=== PATIENT | female | born 1960 | race Caucasian/White ===

== ENCOUNTER 2016-07-30 07:08 | Day surgery (SDC) | payer MEDICARE, MEDICAID ==
[2015-08-25 11:04] VITALS: BMI 29.2
[2016-07-30 07:58] VITALS: O2SAT 100
--- NOTE | 2016-07-30 08:47 | CP.SDSHP ---
Same Day Surgery H & P - History Proposed Procedure: EGD Pre-Op Diagnosis: SEE NOTES - Previous Medical/Surgical History Cardiac: Hypertension Pulmonary: Asthma Endocrine/Metabolic: Diabetes, Other Misc: Other Pain: 4.Moderate Pain - Allergies Allergies: Allergies Penicillins Allergy (Intermediate, Verified 07/30/16 07:28) RASH - Physical Exam General Appearance: N Vital Signs: Vital Signs 07/30/16 07:39 Temperature 97.5 F L Pulse Rate 74 Respiratory 19 Rate Blood Pressure 110/62 O2 Sat by Pulse 100 Oximetry Mental Status: Alert & Oriented x3 Neuro: WNL Heart: Other Lungs: Other GI: Other - {Optional Preform as Required} Breast: WNL Abdomen: Other Rectal: Other Integument: WNL : WNL Ortho: Other ENT: WNL - Impression Pt. Evaluated Today:Candidate for Anesthesia & Procedure: Yes - Date & Time Time: 08:48 Short Stay Discharge - Short Stay Discharge Admitting Diagnosis/Reason for Visit: DYSPEPSIA Disposition: HOME/ ROUTINE
[2016-07-30] MEDS ORDERED: Midazolam 2 MG/2 ML VIAL ONE (08:48)
[2016-07-30] MEDS ORDERED: Propofol 10 mg/ml Inj (20 ML) ONE (08:48)
[2016-07-30] MEDS ORDERED: Belladonna-Phenobarbital PO STA (08:49)
[2016-07-30 09:35] VITALS: TEMP 97.7
[2016-07-30] MEDS ORDERED: Pantoprazole 40 mg EC Tab PO SCH (10:00)
[2016-07-30 10:48] VITALS: BP 131/60; PULSE 88; RESP 16
== END 2016-07-30 10:20 | disposition home or self-care (01) ==
LOC: C.ENDO 07:08
PROVIDERS: ATTEND Specialist
DX: K30 Functional dyspepsia (principal); K44.9 Diaphragmatic hernia without obstruction or gangrene; K29.70 Gastritis, unspecified, without bleeding
CPT/HCPCS: 43239; 82948; 88305; 88342; J2001; J2250; J2704; J2765

== ENCOUNTER 2017-05-20 08:10 | Day surgery (SDC) | payer MEDICARE, MEDICAID ==
[2017-05-20 08:43] VITALS: BMI 28.3
[2017-05-20 09:09] VITALS: O2SAT 100
[2017-05-20] MEDS ORDERED: Lidocaine Hydrochloride 10 ML INJ ONE (10:18)
[2017-05-20] MEDS ORDERED: Propofol 10 mg/ml Inj (20 ML) ONE (10:18)
--- NOTE | 2017-05-20 10:20 | CP.SDSHP ---
Same Day Surgery H & P - History Proposed Procedure: EGD Pre-Op Diagnosis: SEE NOTES - Previous Medical/Surgical History Cardiac: Hypertension Endocrine/Metabolic: Diabetes, Other Neuro: TIA/CVA, Backaches, Other Misc: Other Pain: 4.Moderate Pain - Allergies Allergies: Allergies Penicillins Allergy (Intermediate, Verified 05/20/17 08:42) RASH - Physical Exam General Appearance: N Vital Signs: Vital Signs 05/20/17 08:30 Temperature 97.5 F L Pulse Rate 71 Respiratory 19 Rate Blood Pressure 116/63 O2 Sat by Pulse 100 Oximetry Neuro: WNL Heart: Other Lungs: WNL GI: Other - {Optional Preform as Required} Breast: WNL Abdomen: Other Rectal: Other Integument: WNL : WNL Ortho: Other ENT: WNL - Impression Pt. Evaluated Today:Candidate for Anesthesia & Procedure: Yes - Date & Time Time: 10:20 Short Stay Discharge - Short Stay Discharge Admitting Diagnosis/Reason for Visit: DYSPEPSIA Disposition: HOME/ ROUTINE
[2017-05-20] MEDS ORDERED: Belladonna-Phenobarbital PO STA (10:22)
[2017-05-20] MEDS ORDERED: Lactated Ringer's 500 ML IV SCH (10:30)
[2017-05-20 10:48] VITALS: TEMP 99.5
[2017-05-20 11:59] VITALS: BP 143/73; PULSE 62; RESP 15
== END 2017-05-20 11:50 | disposition home or self-care (01) ==
LOC: C.ENDO 08:10
PROVIDERS: ATTEND Specialist
DX: K21.0 Gastro-esophageal reflux disease with esophagitis (principal); K44.9 Diaphragmatic hernia without obstruction or gangrene; Z79.84 Long term (current) use of oral hypoglycemic drugs; Z79.4 Long term (current) use of insulin; Z86.73 Personal history of transient ischemic attack (TIA), and cerebral infarction without residual deficits; E11.9 Type 2 diabetes mellitus without complications; E78.5 Hyperlipidemia, unspecified; I10 Essential (primary) hypertension; Z88.0 Allergy status to penicillin
CPT/HCPCS: 43239; 82948; 88305; 88342; J2704; J7120

== ENCOUNTER 2017-06-09 16:31 | Emergency (ER) | payer MEDICARE, MEDICAID ==
[2017-06-09 16:31] VITALS: BMI 28.3
[2017-06-09 19:33] LABS: SQUAMOUS EPITHIAL 1 /hpf (0-5)
[2017-06-09 19:36] LABS: URINE COLOR YELLOW (YELLOW)
[2017-06-09 19:37] LABS: URINE BILIRUBIN NEGATIVE (NEGATIVE); URINE BLOOD NEGATIVE (NEGATIVE); URINE CLARITY CLEAR (Clear); URINE GLUCOSE (UA) >1000 mg/dL (Normal); URINE LEUKOCYTE ESTERASE NEGATIVE Leu/uL (Negative); URINE PROTEIN NEGATIVE (NEGATIVE); URINE UROBILINOGEN 0.2 mg/dL (0.2-1.0)
[2017-06-09] MEDS ORDERED: Sodium Chloride 0.9% 1,000 ML IV ONE (19:46)
[2017-06-09 20:16] LABS: BASO % 0.5 % (0.0-2.0); EOS # 0.1 K/uL (0.0-0.7); EOS % 1.1 % (0.0-4.0); HEMOGLOBIN 13.8 g/dL (11.0-16.0); LYMPH # 3.3 K/uL (1.0-4.3); LYMPH % 54.9 % (20.0-40.0); MEAN CELL VOLUME 85.1 fL (81.0-99.0); MEAN CORPUSCULAR HEMOGLOBIN 28.3 pg (27.0-31.0); MEAN CORPUSCULAR HGB CONC 33.3 g/dL (33.0-37.0); MEAN PLATELET VOLUME 9.6 fL (7.2-11.7); MONO # 0.3 K/uL (0.0-0.8); MONO % 5.4 % (0.0-10.0); NEUT # 2.3 K/uL (1.8-7.0); NEUT % 38.1 % (50.0-75.0); NRBC % 0.1 % (0.0-2.0); RBC 4.87 Mil/uL (3.80-5.20); RED CELL DISTRIBUTION WIDTH 15.8 % (11.5-14.5)
[2017-06-09 20:28] LABS: ALB/GLOB RATIO 1.1 (1.0-2.1); ALBUMIN 4.8 g/dL (3.5-5.0); ALT/SGPT 19 U/L (9-52); AST/SGOT 29 U/L (14-36); BLOOD UREA NITROGEN 13 mg/dL (7-17); GFR AFRICAN-AMERICAN > 60; GFR NON-AFRICAN AMERICAN > 60; LIPASE 198 U/L (23-300)
[2017-06-09 21:00] VITALS: RESP 18
--- NOTE | 2017-06-09 23:11 | C.PDOC ---
Time Seen by Provider: 06/09/17 19:37 Chief Complaint (Nursing): Female Genitourinary History Per: Patient Onset/Duration Of Symptoms: Days (about 3 weeks), Waxing/Waning Current Symptoms Are (Timing): Still Present Severity: Moderate Location Of Pain/Discomfort: RUQ Radiation Of Pain To:: Back, Flank Quality Of Discomfort: "Pain" Associated Symptoms: Urinary Symptoms Alleviating Factors: None Additional History Per: Prior Records Past Medical History Reviewed: Historical Data, Nursing Documentation, Vital Signs Vital Signs: Last Vital Signs Temp 98.3 F 06/09/17 20:59 Pulse 68 06/09/17 20:59 Resp 18 06/09/17 20:59 BP 165/95 H 06/09/17 20:59 Pulse Ox 98 06/09/17 20:59 - Medical History PMH: Asthma, Diabetes, Deep Vein Thrombosis, Gastritis (EPIGASTRIC PAIN), Gastrointestinal Ulcer, HTN, Hypercholesterolemia, Osteoporosis Surgical History: Endoscopy, Other Surgeries: IVC filter - [facility] Procedures ENDOSC POLYPECTOMY OF LG INTEST (04/11/14) ESOPHAGOGASTRODUODENOSCOPY [EGD] W/CLOSED BIOPSY (11/08/14) Family History: States: Unknown Family Hx - Social History Hx Tobacco Use: No Hx Alcohol Use: No Hx Substance Use: No - Immunization History Hx Tetanus Toxoid Vaccination: No Hx Influenza Vaccination: No Hx Pneumococcal Vaccination: No Review Of Systems Except As Marked, All Systems Reviewed And Found Negative. Constitutional: Negative for: Fever Cardiovascular: Negative for: Chest Pain Respiratory: Negative for: Shortness of Breath Gastrointestinal: Positive for: Abdominal Pain. Negative for: Vomiting, Diarrhea Genitourinary: Positive for: Dysuria Musculoskeletal: Positive for: Back Pain. Negative for: Neck Pain Skin: Negative for: Rash Neurological: Negative for: Weakness, Numbness Physical Exam - Physical Exam Appears: Non-toxic, No Acute Distress Skin: Normal Color, Warm, Dry, No Rash Head: Atraumatic, Normacephalic Eye(s): bilateral: Normal Inspection, PERRL, EOMI Neck: Normal ROM, Supple Cardiovascular: Rhythm Regular Respiratory: Normal Breath Sounds, No Accessory Muscle Use Gastrointestinal/Abdominal: Soft, Tenderness (RUQ) Back: CVA Tenderness (mild right) Extremity: Normal ROM Neurological/Psych: Oriented x3, Normal Motor, Normal Sensation ED Course And Treatment - Laboratory Results Result Diagrams: 06/09/17 20:05 06/09/17 20:05 Lab Interpretation: No Acute Changes O2 Sat by Pulse Oximetry: 98 Pulse Ox Interpretation: Normal - CT Scan/US CT abd/pelv Other Rad Studies (CT/US): Read By Radiologist, Radiology Report Reviewed CT/US Interpretation: No acute findings. Progress - Interventions Interventions:: Observation - Medications Administered Intravenous: NSAID - Data Reviewed Data Reviewed: Lab, Diagnostic imaging, Old records - Patient Status Patient status: Mostly improved - Continuity of Care Discussed patient case with:: Patient, Family-HIPPA compliant, ED Nurse - Patient Plan Patient Plan: Discharge, F/U with PCP, Continue present meds Disposition Counseled Patient/Family Regarding: Studies Performed, Diagnosis, Need For Followup - Disposition Referrals: Melissa Ch MD [Staff Provider] - Keo Morris [Staff Provider] - Disposition: HOME/ ROUTINE Disposition Time: 23:11 Condition: STABLE Additional Instructions: Follow up with your doctor for further evaluation and treatment. Return to the ER if you develop fever, vomiting, worsening of symptoms or if you have any other concerns. Instructions: Flank Pain (DC) Forms: [employer] (Urdu) - Clinical Impression Clinical Impression: Right flank pain
[2017-06-09 23:15] VITALS: BP 129/79; PULSE 62; TEMP 97.3; O2SAT 99
--- NOTE | 2017-06-10 08:17 | CT ---
PROCEDURE: CT Abdomen and Pelvis without intravenous contrast HISTORY: Right flank pain COMPARISON: None. TECHNIQUE: Multiple contiguous axial images were performed through the abdomen and pelvis without the use of intravenous contrast. Subsequently, sagittal and coronal reformatted images were obtained. Radiation dose: Total exam DLP = 467 mGy-cm. This CT exam was performed using one or more of the following dose reduction techniques: Automated exposure control, adjustment of the mA and/or kV according to patient size, and/or use of iterative reconstruction technique. FINDINGS: LOWER THORAX: Dependent atelectasis at the lung bases. LIVER: Fatty infiltration of the liver. GALLBLADDER AND BILE DUCTS: Unremarkable. PANCREAS: Unremarkable. No gross lesion or ductal dilatation. SPLEEN: Unremarkable. ADRENALS: Unremarkable. No mass. KIDNEYS AND URETERS: Unremarkable. No hydronephrosis. No solid mass. VASCULATURE: Unremarkable. No aortic aneurysm. BOWEL: Partially distended stomach. Incompletely distended colon. APPENDIX: Unremarkable. Normal appendix. PERITONEUM: Unremarkable. No free fluid. No free air. LYMPH NODES: Unremarkable. No enlarged lymph nodes. BLADDER: Unremarkable. REPRODUCTIVE: Absent uterus. BONES: Degenerative changes in the osseous structures. Multilevel endplate sclerosis and/or mild loss of height. Correlation with MRI may be helpful if clinically indicated. OTHER FINDINGS: Small fat containing umbilical hernia. Small fat containing right inguinal hernia. IVC filter in place. Calcified phleboliths. IMPRESSION: Fatty infiltration of the liver. Additional findings as above. These findings were preliminarily reported at 9:30 p.m. on 06/09/[address] Karen Carmona from [employer].
== END 2017-06-09 23:15 | disposition home or self-care (01) ==
LOC: C.ER 16:31
DX: R10.11 Right upper quadrant pain (principal)
CPT/HCPCS: 74176; 80053; 81001; 83690; 85025; 87086; 96361; 96374; 99285; J1885; J7040

== ENCOUNTER 2017-07-24 14:39 | Inpatient (IN) | payer MEDICARE, MEDICAID ==
[2017-07-24 14:39] VITALS: BMI 28.3
[~2017-07-24 14:39] MED LIST: Gadodiamide 287 MG/ML VIAL (15ML) IV ONE
--- NOTE | 2017-07-24 15:30 | C.PDOC ---
History Of Present Illness 56 y/o female presents to ED with c/o worsening headache for 3 days worse today with associated facial numbness. Patient states headache is consistent with hemorrhagic stroke in 2016, taken Tylenol #3 and Fioricet, last dose was last night. No other complaints at this time. Time Seen by Provider: 07/24/17 15:22 Chief Complaint (Nursing): Headache History Per: Patient, Family History/Exam Limitations: no limitations Onset/Duration Of Symptoms: Days Current Symptoms Are (Timing): Still Present Quality: "Pain" Past Medical History Reviewed: Historical Data, Nursing Documentation, Vital Signs Vital Signs: Last Vital Signs Temp 97.3 F L 07/24/17 14:45 Pulse 67 07/24/17 16:15 Resp 16 07/24/17 16:15 BP 158/87 H 07/24/17 16:15 Pulse Ox 99 07/24/17 16:23 - Medical History PMH: Asthma, Diabetes, Deep Vein Thrombosis, Gastritis (EPIGASTRIC PAIN), Gastrointestinal Ulcer, HTN, Hypercholesterolemia, Osteoporosis Surgical History: Endoscopy, - [facility] Procedures ENDOSC POLYPECTOMY OF LG INTEST (04/11/14) ESOPHAGOGASTRODUODENOSCOPY [EGD] W/CLOSED BIOPSY (11/08/14) Family History: States: No Known Family Hx - Social History Hx Tobacco Use: No Hx Alcohol Use: No Hx Substance Use: No - Immunization History Hx Tetanus Toxoid Vaccination: No Hx Influenza Vaccination: No Hx Pneumococcal Vaccination: No Review Of Systems Constitutional: Negative for: Fever, Chills Cardiovascular: Negative for: Chest Pain Respiratory: Negative for: Shortness of Breath Gastrointestinal: Negative for: Nausea, Vomiting Skin: Negative for: Rash Neurological: Positive for: Headache. Negative for: Weakness, Numbness Physical Exam - Physical Exam Appears: Non-toxic, Other (In moderate distress) Skin: Warm, Dry, No Rash Head: Atraumatic, Normacephalic Eye(s): bilateral: Normal Inspection Oral Mucosa: Moist Neck: Normal ROM, Supple Cardiovascular: Rhythm Regular Respiratory: Normal Breath Sounds, No Rales, No Rhonchi, No Wheezing Gastrointestinal/Abdominal: Soft, No Tenderness, No Guarding, No Rebound Neurological/Psych: Oriented x3, Normal Speech, Normal Cognition, Normal Cranial Nerves, Normal Motor, Normal Sensation ED Course And Treatment - Laboratory Results Result Diagrams: 07/24/17 15:37 05/31/18 15:37 Lab Interpretation: Normal ECG: Interpreted By Me ECG Rhythm: Sinus Rhythm ECG Interpretation: Normal Rate From EC O2 Sat by Pulse Oximetry: 99 (RA) Pulse Ox Interpretation: Normal - Radiology CXR: Interpreted by Me CXR Interpretation: Yes: No Acute Disease Progress Note: 330pm: Code stroke called, morphine 4 mg IV. 1620: pain from 10 10 to 510, declines further pain meds Reevaluation Time: 16:19 Reassessment Condition: Improved - Physician Consult Information Outcome Of Conversation: 1615: d/w Dr Ch, PMD- ok to admit. NIHSS Stroke Scale - Date/Time Evaluation Performed Date Performed: 07/24/17 Time Performed: 15:30 When Was NIHSS Performed: Baseline - How Severe is the Stoke Level of Consciousness: 0=Alert LOC to Questions: 0=Both comments correct LOC to commands: 0=Obeys both correctly Best Gaze: 0=Normal Visual: 0=No visual loss Facial: 0=Normal Motor Arm - Left: 0=No drift Motor Arm - Right: 0=No drift Motor Leg - Left: 0=No drift Motor Leg - Right: 0=No drift Limb Ataxia: 0=Absent Sensory: 0=Normal Best Language: 0=No aphasia Dysarthia: 0=Normal articulation Extinction & Inattention (Neglect): 0=Normal, no object Score: 0 Severity Of Stroke: 0= No Stroke rTPA Inclusion/Exclusion - Refusal of Treatment Patient Refused Treatment: No - Inclusion Criteria for Altepase Patient is 18 years or Older: Yes The Clinical Diagnosis of Ischemic Stroke That is Causing a Potentially Disabling Neurological Deficit: No Time of Onset is Well Established to be Less Than 270 Minute Before Treatment Would Begin: No - Exclusion Criteria for Altepase Uncontrolled Hypertension at Time of Treatment (Systolic BP above 185 or Diastolic BP above 110 mmHg): No History of: Intracranial hemorrhage Known Bleeding Diathesis Including but Not Limited to: Platelets Below 100,000/ mm,PTT Above 40 sec After Heparin Use, Current Use of Oral Anitcoagulant With INR Greater Than 1.7 or PT Greater Than 15 secs: No Evidence of an Intracranial Hemorrhage: No Evidence of Major Acute Infarct With Signs Greater Than 1/3 MCA Territory: No Suspicion of Subarachnoid Hemorrhage on Pretreatment Evaluation Even if CT Head Negative For Hemorrhage: Yes - Warning to TPA With Conditions Following Conditions Weighed Against Anticipated Benefit: No Condition: Stroke Serevity Too Mild Medical Decision Making Medical Decision Making: acute on chronic headaches poor compliance with T3/Fioricet h/o SAH, but Code STroke w/u neg today, improved with mohphine IV ASA given Obs for neuro eval and MRI Disposition Doctor Will See Patient In The: Hospital Counseled Patient/Family Regarding: Studies Performed, Diagnosis - Disposition Disposition: HOSPITALIZED Disposition Time: 16:21 Condition: FAIR Forms: [employer] (Palauan) - Clinical Impression Clinical Impression: Headache - Scribe Statement The provider has reviewed the documentation as recorded by the Imeribjose Chan All medical record entries made by the Pancho were at my direction and personally dictated by me. I have reviewed the chart and agree that the record accurately reflects my personal performance of the history, physical exam, medical decision making, and the department course for this patient. I have also personally directed, reviewed, and agree with the discharge instructions and disposition.
[2017-07-24] MEDS ORDERED: Iodixanol 320 MG/ML 100 ML BOTTLE IV ONE (15:34)
[2017-07-24 15:42] LABS: BASO % 0.3 % (0.0-2.0); EOS # 0.1 K/uL (0.0-0.7); EOS % 1.1 % (0.0-4.0); HEMOGLOBIN 12.7 g/dL (11.0-16.0); LYMPH # 3.4 K/uL (1.0-4.3); LYMPH % 51.8 % (20.0-40.0); MEAN CELL VOLUME 85.7 fL (81.0-99.0); MEAN CORPUSCULAR HEMOGLOBIN 28.5 pg (27.0-31.0); MEAN CORPUSCULAR HGB CONC 33.3 g/dL (33.0-37.0); MEAN PLATELET VOLUME 9.6 fL (7.2-11.7); MONO # 0.5 K/uL (0.0-0.8); NEUT # 2.6 K/uL (1.8-7.0); NEUT % 39.8 % (50.0-75.0); RBC 4.46 Mil/uL (3.80-5.20); WHITE BLOOD COUNT 6.5 K/uL (4.8-10.8)
[2017-07-24 15:50] LABS: PROTHROMBIN TIME 11.4 SECONDS (9.7-12.2)
[2017-07-24 15:56] LABS: ALB/GLOB RATIO 1.3 (1.0-2.1); ALBUMIN 4.5 g/dL (3.5-5.0); ALT/SGPT 36 U/L (9-52); AST/SGOT 33 U/L (14-36); BLOOD UREA NITROGEN 11 mg/dL (7-17); GFR AFRICAN-AMERICAN > 60; GFR NON-AFRICAN AMERICAN > 60; HDL CHOLESTEROL 47 mg/dL (30-70)
--- NOTE | 2017-07-24 15:56 | CT ---
PROCEDURE: CT HEAD WITHOUT CONTRAST. HISTORY: Code Stroke COMPARISON: 07/13/2015. TECHNIQUE: Axial computed tomography images were obtained through the head/brain without intravenous contrast. Radiation dose: Total exam DLP = 803.91 mGy-cm. This CT exam was performed using one or more of the following dose reduction techniques: Automated exposure control, adjustment of the mA and/or kV according to patient size, and/or use of iterative reconstruction technique. FINDINGS: HEMORRHAGE: No intracranial hemorrhage. BRAIN: Morris-white matter differentiation is preserved. There is no mass, mass effect or abnormal extra-axial fluid collection. There is no territorial infarction. There is redemonstration of a small presumable calcified meningioma along the left posterior parietal convexity. VENTRICLES: The ventricles are normal in size, shape and configuration. CALVARIUM: The skull base and calvarium are normal. . PARANASAL SINUSES: Predominantly clear. MASTOID AIR CELLS: Predominantly clear. OTHER FINDINGS: None. IMPRESSION: No acute intracranial abnormality. If there is a persistent focal neurologic deficit and an ongoing clinical concern for acute infarction, an MRI of the brain without intravenous contrast would be a more sensitive modality for evaluation of hyperacute/acute ischemic infarction. Important findings were discussed with Dr. Kuldip Farrar on 07/24/2017 at 3:55 p.m.
[2017-07-24] MEDS ORDERED: Morphine 4 MG/ML VIAL ONE (15:59)
--- NOTE | 2017-07-24 16:06 | CT ---
PROCEDURE: CTA HEAD AND NECK WITH CONTRAST HISTORY: Headache, h/o SAH COMPARISON: None available. TECHNIQUE: Initial noncontrast head CT was performed. Subsequently, CT angiogram of the head and neck were performed after the intravenous administration of 80 mL of Omnipaque 350. Contiguous 1.5mm thick images were obtained in the axial plane of the neck. 2-D coronal and sagittal MPR images were obtained. Imaging postprocessing was performed with 3-D images also obtained. A delayed contrast head CT was also obtained. This CT exam was performed using one or more of the following dose reduction techniques: Automated exposure control, adjustment of the mA and/or kV according to patient size, and/or use of iterative reconstruction technique. Contrast dose: 100 mL Visipaque Radiation dose: Total exam DLP = 523.51 MGy-cm. FINDINGS: HEAD: Right: The intracranial internal carotid artery, and anterior and middle cerebral arteries are widely patent. Left: The intracranial internal carotid artery, and anterior and middle cerebral arteries are widely patent. Posterior circulation: The visualized intracranial vertebral arteries, basilar artery and posterior cerebral arteries are widely patent. There is no endoluminal filling defect to suggest thrombus. There is no intracranial saccular aneurysm. There is no abnormal enhancement on the postcontrast CT. NECK: There is a three vessel aortic arch. There is no stenosis at the origins of the great vessels at the level of the aortic arch. Right Carotid: On the right, the common carotid, internal carotid and external carotid arteries are widely patent. There is no hemodynamically significant stenosis in the internal carotid artery by NASCET criteria. Left Carotid: On the left, the common carotid, internal carotid and external carotid arteries are widely patent. There is no hemodynamically significant stenosis in the internal carotid artery by NASCET criteria. The vertebral arteries are widely patent. The vertebral arteries are codominant. The visualized soft tissues of the neck are normal. The visualized brain and cervical spine are within normal limits. The lung apices are clear. IMPRESSION: 1. No evidence of endoluminal thrombus, definite significant stenosis, occlusion or saccular aneurysm. 2. No hemodynamically significant stenosis in the internal carotid arteries.
[2017-07-24 16:07] LABS: LDL CHOLESTEROL 95 mg/dL (0-129)
--- NOTE | 2017-07-24 16:36 | RAD ---
HISTORY: Code Stroke COMPARISON: 07/16/2016. FINDINGS: LUNGS: The lungs are well inflated and clear. No pleural effusion or pneumothorax. PLEURA: No significant pleural effusion identified, no pneumothorax apparent. CARDIOVASCULAR: Normal. OSSEOUS STRUCTURES: No significant abnormalities. VISUALIZED UPPER ABDOMEN: Normal. OTHER FINDINGS: None. IMPRESSION: No active pulmonary disease.
[2017-07-24] MEDS ORDERED: Oxycodone/Acetaminophen 5/325 mg Tab PO STA (16:41)
[2017-07-24] MEDS ORDERED: Oxycodone/Acetaminophen 5/325 mg Tab ONE (16:51)
[2017-07-24] MEDS ORDERED: Fluticasone-Salmeterol 100-50mcg Diskus IH PRN (20:02)
[2017-07-24] MEDS ORDERED: Apap-Butalbital-Caffeine 325-50-40mg Tab PO PRN (21:05)
[2017-07-24] MEDS: (Novolog) Insulin Aspart, Recombinant 100 u/ml 10 ml vial SC SCH (21:17)
[2017-07-24] MEDS: (Lantus) Insulin Glargine, Recombinant SC SCH (21:18)
[2017-07-24] MEDS ORDERED: Acetaminophen-Codeine 300/30 mg Tab PO PRN (22:41)
[2017-07-25 07:40] LABS: HDL CHOLESTEROL 43 mg/dL (30-70)
[2017-07-25 07:55] LABS: LDL CHOLESTEROL 99 mg/dL (0-129)
[2017-07-25] MEDS ORDERED: Valproate 500 MG in Sodium Chloride 0.9% 100 ML IVPB ONE ×2 (08:06→17:12)
[2017-07-25] MEDS: (Novolog) Insulin Aspart, Recombinant 100 u/ml 10 ml vial SC SCH ×4 (08:15→21:49)
[2017-07-25] MEDS: Magnesium Sulfate 1 gm in D5W 1 GM/100 ML BAG IVPB SCH ×2 (08:23→08:55)
[2017-07-25] MEDS ORDERED: INSULIN ASPART 15 UNIT SQ SCH (09:00)
[2017-07-25] MEDS: (Lantus) Insulin Glargine, Recombinant SC SCH ×2 (09:47→21:42)
[2017-07-25] MEDS: Pantoprazole 40 mg EC Tab PO SCH ×2 (09:59→19:48)
[2017-07-25] MEDS ORDERED: ACETAMINOPHEN PO SCH (10:00)
[2017-07-25] MEDS ORDERED: CODEINE PO SCH (10:00)
[2017-07-25] MEDS ORDERED: Apap-Butalbital-Caffeine 325-50-40mg Tab PO SCH (10:00)
--- NOTE | 2017-07-25 12:06 | MRI ---
PROCEDURE: MRI BRAIN WITH AND WITHOUT CONTRAST HISTORY: Headache COMPARISON: Close Comparison made with prior scan and CTA of the brain dated 07/24/2014. TECHNIQUE: Multiplanar, multisequence MR images of the brain were obtained with and without intravenous contrast enhancement. FINDINGS: HEMORRHAGE: No evidence of acute parenchymal, subarachnoid nor extra-axial hemorrhage. No hemosiderin deposition is identified on gradient echo weighted sequence. DWI: No evidence of an acute or early subacute infarction seen on diffusion imaging. BRAIN PARENCHYMA: No mass,mass effect or edema. No atrophy or chronic microvascular ischemic changes. ENHANCEMENT: Again noted is a small (approximately 9.1 x 4.6 mm) elliptical shaped extra-axial calcification in the left occipito parietal watershed zone which exhibits a peripheral rim of enhancement however the calcified central portion and base of this small meningioma does not enhance. . There is localized minor on mass effect with slight compression of the subjacent cortex. No other enhancing extra-axial masses or collections. Incidental small venous angioma right frontal region best seen on axial series 11 image number 10. No other areas of abnormal dural or meningeal enhancement. VENTRICLES: No obstructive hydrocephalus. CRANIUM: No other dural based calcifications calvarial abnormalities are identified. Suspected old healed fracture deformity left zygomatic arch is less well seen on this study as compared to prior CT scan and CTA of the brain. ORBITS: Orbits and contents unremarkable. PARANASAL SINUSES/MASTOIDS: Frontal sinuses remain slightly underpneumatized/ hypoplastic however the remaining visualized paranasal air complexes are well-developed. Minor old mucosal thickening seen within the ethmoid air complex. VASCULAR SYSTEM: Visualized major vascular flow voids at skull base patent. OTHER FINDINGS: None . IMPRESSION: Small of partially calcified meningioma left occipito parietal watershed zone as described. Incidental small venous angioma right frontal region best seen on axial series 11 image number 10 No evidence of acute intracranial hemorrhage or infarct.
[2017-07-25 13:01] LABS: FOLATE > 20.0 ng/mL
[2017-07-25] MEDS: Oxycodone/Acetaminophen 5/325 mg Tab PO PRN (14:20)
[2017-07-25] MEDS ORDERED: Dexamethasone 4 mg/1 ml IV STA (17:12)
[2017-07-25] MEDS ORDERED: Magnesium Sulfate 1 gm in D5W 1 GM/100 ML BAG IVPB ONE (17:14)
--- NOTE | 2017-07-25 17:17 | CP.PCM.CON ---
History of Present Illness - History of Present Illness History of Present Illness: Mrs. Ling is a 57-year-old woman with a past medical history of subarachnoid hemorrhage in 2016, chronic headaches for which she uses Fioricet, who states that for the last 3 days her headaches have been significantly worse and associated with right facial and eye pain that is sharp and burning in nature. She presented to the ED, because she was concerned that this was another SAH. CT scan of the head did not show any acute findings, CTA did show diffusely narrowed caliber vessels, but nothing acutely concerning, MRI of the brain did now show any concerning findings. When I saw the patient, she was still complaining of 8/10 headache, located mostly on the right side, clarice-orbital, facial and neck. Review of Systems - Review of Systems All systems: reviewed and no additional remarkable complaints except Past Patient History - Infectious Disease Hx of Infectious Diseases: None - Past Medical History & Family History Past Medical History?: Yes - Past Social History Smoking Status: Never Smoked - CARDIAC Hx Cardiac Disorders: Yes Hx Hypercholesterolemia: Yes Hx Hypertension: Yes - PULMONARY Hx Respiratory Disorders: Yes Hx Asthma: Yes - NEUROLOGICAL Hx Neurological Disorder: Yes (SEE COMMENT) HX Cerebrovascular Accident: Yes (subarachnoid june 2015) Other/Comment: CHRONIC HEADACHE POST CVA - HEENT Hx HEENT Problems: No Other/Comment: 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 - RENAL Hx Chronic Kidney Disease: No - ENDOCRINE/METABOLIC Hx Endocrine Disorders: Yes Hx Diabetes Mellitus Type 2: Yes - HEMATOLOGICAL/ONCOLOGICAL Hx Blood Disorders: No (SEE COMMENT) Hx Blood Transfusions: No Other/Comment: DVT 2016 - INTEGUMENTARY Hx Dermatological Problems: No - MUSCULOSKELETAL/RHEUMATOLOGICAL Hx Musculoskeletal Disorders: Yes Hx Falls: No Hx Osteoporosis: Yes - GASTROINTESTINAL Hx Gastrointestinal Disorders: Yes Hx Gastritis: Yes (EPIGASTRIC PAIN) - GENITOURINARY/GYNECOLOGICAL Hx Genitourinary Disorders: No Hx Urinary Tract Infection: No Other/Comment: HYSTERECTOMY FOR BLEEDING - PSYCHIATRIC Hx Psychophysiologic Disorder: No Hx Substance Use: No - SURGICAL HISTORY Hx Surgeries: Yes Hx Appendectomy: Yes Hx Section: Yes Hx Hysterectomy: Yes - ANESTHESIA Hx Anesthesia: Yes Hx Anesthesia Reactions: No Hx Malignant Hyperthermia: No Has any member of the family had a problem w/ anesthesia?: No Meds Allergies/Adverse Reactions: Allergies Allergy/AdvReac Type Severity Reaction Status Date / Time Penicillins Allergy Intermediate RASH Verified 07/24/17 14:44 - Medications Medications: Current Medications Aspirin (Aspirin Chewable) 81 mg PO DAILY [facility] Last Admin: 07/25/17 09:47 Dose: 81 mg Duloxetine HCl (Cymbalta) 30 mg PO [facility] Last Admin: 07/24/17 21:57 Dose: 30 mg Famotidine (Pepcid) 20 mg PO BID [facility] Last Admin: 07/25/17 09:47 Dose: 20 mg Home Med (Patient's Own Medication) 1 tab PO [facility] Hydrochlorothiazide (Microzide) 12.5 mg PO QOD6 [facility] Insulin Aspart (Novolog) 0 unit SC ACHS [facility] PRN Reason: Protocol Last Admin: 07/25/17 13:49 Dose: Not Given Insulin Glargine (Lantus) 30 unit SC Q12 [facility] Last Admin: 07/25/17 09:47 Dose: 30 unit Losartan Potassium (Cozaar) 50 mg PO DAILY [facility] Last Admin: 07/25/17 09:47 Dose: 50 mg Metformin HCl (Glucophage) 1,000 mg PO BID [facility] Last Admin: 07/25/17 09:47 Dose: 1,000 mg Metoclopramide HCl (Reglan) 10 mg PO BID PRN PRN Reason: Dyspepsia Ondansetron HCl (Zofran Tab) 8 mg PO Q8 PRN PRN Reason: Nausea/Vomiting Oxycodone/Acetaminophen (Percocet 5/325 Mg Tab) 1 tab PO Q6 PRN PRN Reason: Pain, severe (8-10) Stop: 07/28/17 00:01 Last Admin: 07/25/17 14:20 Dose: 1 tab Pantoprazole Sodium (Protonix Ec Tab) 40 mg PO BID [facility] Last Admin: 07/25/17 09:59 Dose: Not Given Pregabalin (Lyrica) 100 mg PO TID [facility] Last Admin: 07/25/17 14:22 Dose: 100 mg Rosuvastatin Calcium (Crestor) 10 mg PO [facility] Last Admin: 07/24/17 21:57 Dose: 10 mg Fluticasone/Salmeterol (Advair Diskus 100/50) 1 puff IH RQ12 PRN PRN Reason: Wheezing Sucralfate (Carafate Tab) 1 gm PO TID [facility] Last Admin: 07/25/17 14:22 Dose: 1 gm Physical Exam - Constitutional Appears: Well - Head Exam Head Exam: ATRAUMATIC, NORMAL INSPECTION, NORMOCEPHALIC - Neurological Exam Neurological exam: Alert, CN II-XII Intact, Normal Gait, Oriented x3, Reflexes Normal Results - Vital Signs Recent Vital Signs: Last Vital Signs Temp 98.1 F 07/25/17 15:00 Pulse 97 H 07/25/17 15:00 Resp 20 07/25/17 15:00 BP 112/71 07/25/17 15:00 Pulse Ox 100 07/25/17 15:00 - Labs Result Diagrams: 07/24/17 15:37 07/24/17 15:37 Labs: Laboratory Results - last 24 hr 07/24/17 07/25/17 07/25/17 21:01 06:38 07:13 ESR POC Glucose (mg/dL) 113 H 149 H C-Reactive Protein Triglycerides 160 H Cholesterol 163 LDL Cholesterol Direct 99 HDL Cholesterol 43 Vitamin B12 25-OH Vitamin D Total Folate TSH 3rd Generation 07/25/17 07/25/17 07/25/17 11:24 11:24 11:24 ESR 15 POC Glucose (mg/dL) C-Reactive Protein 10.60 H Triglycerides Cholesterol LDL Cholesterol Direct HDL Cholesterol Vitamin B12 628 25-OH Vitamin D Total 36.7 Folate > 20.0 TSH 3rd Generation 0.81 07/25/17 07/25/17 11:36 16:52 ESR POC Glucose (mg/dL) 200 H 307 H C-Reactive Protein Triglycerides Cholesterol LDL Cholesterol Direct HDL Cholesterol Vitamin B12 25-OH Vitamin D Total Folate TSH 3rd Generation Assessment & Plan (1) Headache Assessment and Plan: Likely migraine and has symptoms of trigeminal neuralgia as well. I will start her on depakote ER 500 mg daily, and will give first dose IV now. Will also dose decadron 10 mg IV now and magnesium sulfate 1 gram IV now. She should stop taking Fioricet due to medication overuse headache. Follow up with me in outpatient. Thank you. Status: Acute Priority: High
[2017-07-25] MEDS ORDERED: TIZANIDINE 4MG PO SCH (22:00)
--- NOTE | 2017-07-26 02:20 | CARD ---
APPROVED REPORT EKG Measurement Heart [id number] <Conclusion> Normal sinus rhythm Normal ECG
--- NOTE | 2017-07-26 06:11 | HP ---
CHIEF COMPLAINT: Severe headache. HISTORY OF PRESENT ILLNESS This is a 56-year-old [place] female with history of subarachnoid hemorrhage in 2016 and chronic headache for which she uses different pain medications. The patient presented to emergency room with symptoms of severe headache that has been continuous over the last 4 days prior to admission. The patient was given Fioricet by me as an outpatient, and the symptoms were not relieved. The patient's headache is associated with some nausea and vomiting. The patient denied to have any his symptoms suggestive of head trauma or seizure activity. Other review of system is negative. ALLERGIES: NO KNOWN ALLERGY MEDICATIONS PER MAR. PAST MEDICAL HISTORY: Type 2 diabetes mellitus, uncontrolled; diabetic neuropathy; status post subarachnoid hemorrhage; hypertension; vitamin D deficiency; osteoarthritis; degenerative spine disease with radiculopathy. SOCIAL HISTORY: No history of smoking, EtOH or substance abuse. FAMILY HISTORY: Noncontributory. PHYSICAL EXAMINATION: GENERAL: The patient is in bed, in mild distress due to the headache. VITAL SIGNS: Blood pressure is 112/71, temperature 98.1, respiratory rate 20 and pulse 97. HEENT: Pupils are equal and reactive to light. Normal-appearing mucosa of the conjunctivae, oropharynx and nasal membrane mucosa. NECK: Supple. No JVD. No carotid bruit. No lymph node. No thyromegaly. CHEST AND LUNGS: Bilateral symmetrical expansion. Good air exchange. No rales. No rhonchi. CARDIOVASCULAR SYSTEM: PMI not localized. S1, S2. No additional sounds. ABDOMEN: Normoactive bowel sounds. No tenderness. No organomegaly. No masses. EXTREMITIES: No cyanosis, no clubbing, no edema. ORTHOTIC AND PROSTHETIC TECHNICIAN: Alert, awake, oriented x2. No neurological deficit could be appreciated. IMAGING: CAT scan of the head is negative, and MRI findings were quite significant. IMPRESSION: 1. The patient is a 56-year-old with severe headache associated with neck pain and rule out cervical spine disease with radiculopathy. 2. Type 2 diabetes mellitus. 3. Hypertension. PLAN: We will do cervical spine MRI. Follow neurological recommendations. Continue current medications. Resume the patient's home medications. Accu-Cheks with insulin coverage. Melissa Ch MD [facility] # [id number]
[2017-07-26] MEDS: (Novolog) Insulin Aspart, Recombinant 100 u/ml 10 ml vial SC SCH ×4 (08:11→21:39)
[2017-07-26] MEDS: Divalproex 500 mg ER Tab PO SCH (09:26)
[2017-07-26] MEDS: Pantoprazole 40 mg EC Tab PO SCH ×2 (09:39→17:42)
[2017-07-26] MEDS: (Lantus) Insulin Glargine, Recombinant SC SCH ×2 (11:28→21:53)
--- NOTE | 2017-07-26 13:13 | MRI ---
MRI cervical spine History: Headache. Radiculopathy. Neck pain. Comparison: None available. Technique: Multi-echo multiplanar sequences were performed through the cervical spine without the use of intravenous contrast. Findings: Mild levoscoliotic curvature of the lower cervical spine. Multilevel disc desiccation. Signal abnormality within the spinal cord on the sagittal T2 and STIR sequences may represent prominent pulsation artifact. Additional etiologies not excluded. Prominent patient motion artifact. Mild anterior osteophytosis at the C4 through C7 levels. C2-3: No significant disc herniation, spinal canal stenosis, or neural foraminal narrowing. C3-4: Small broad-based posterior disc bulge contacting the anterior thecal sac. No significant spinal canal stenosis or neural foraminal narrowing. C4-5: Small broad-based posterior disc bulge contacting the anterior thecal sac. Mild spinal canal stenosis. Mild bilateral neural foraminal narrowing. C5-6: Moderate-sized broad-based posterior disc osteophyte complex contacting the anterior thecal sac and anterior spinal cord. Moderate spinal canal stenosis. Moderate bilateral neural foraminal narrowing. C6-7: Small broad-based posterior disc bulge contacting the anterior thecal sac. Mild spinal canal stenosis. Mild bilateral neural foraminal narrowing. Impression: Limited study secondary to prominent patient motion and pulsation artifact. Multilevel posterior disc bulges/posterior disc osteophyte complexes as described above. Additional findings as above.
[2017-07-26] MEDS: carBAMazepine Chew Tab 100 MG Chew Tab PO SCH ×2 (14:40→21:04)
--- NOTE | 2017-07-26 16:19 | CARD ---
APPROVED REPORT EXAM: Two-dimensional and M-mode echocardiogram with Doppler and color Doppler. Other Information Quality : GoodRhythm : INDICATION CVA/TIA 2D DIMENSIONS IVSd0.7 (0.7-1.1cm)LVDd4.7 (3.9-5.9cm) PWd0.6 (0.7-1.1cm)LVDs2.9 (2.5-4.0cm) FS (%) 38.0 %LVEF (%)68.1 (>50%) M-Mode DIMENSIONS Left Atrium (MM)3.39 (2.5-4.0cm)Aortic Root2.61 (2.2-3.7cm) Aortic Cusp Exc.1.93 (1.5-2.0cm) Mitral Valve MV E Sqmlfcay89.4cm/sMV A Vyucwofe94.4cm/sE/A ratio1.1 TDI E/Lateral E'0.0E/Medial E'0.0 Tricuspid Valve TR Peak Qbvafwif881kj/sTR Peak Gr.[id number] LEFT VENTRICLE The left ventricle is normal size. There is normal left ventricular wall thickness. The left ventricular function is normal. The left ventricular ejection fraction is within the normal range. There is normal LV segmental wall motion. The left ventricular diastolic function is normal. RIGHT VENTRICLE The right ventricle is normal size. ATRIA The left atrium size is normal. The right atrium size is normal. AORTIC VALVE The aortic valve is normal in structure. MITRAL VALVE The mitral valve is normal in structure. TRICUSPID VALVE The tricuspid valve is normal in structure. <Conclusion> Normal LV systolic function. Normal chamber size. No significant valvular abnormality seen.
[2017-07-26] MEDS: Oxycodone/Acetaminophen 5/325 mg Tab PO PRN (17:47)
[2017-07-26] MEDS: LINACLOTIDE 290 MCG PO SCH (18:00)
[2017-07-26] MEDS ORDERED: diaZEpam 10 mg/2 ml Inj IVP PRN (18:41)
[2017-07-26] MEDS: TIZANIDINE 4MG PO SCH (21:04)
--- NOTE | 2017-07-26 23:35 | PN ---
DATE: 07/26/2017 DAILY PROGRESS NOTE SUBJECTIVE: The patient is seen today, 07/26/2017. She is still complaining of headache, mostly on the right side of the head. The patient had an MRI of the head as well as MRI of the cervical spine that did not show significant abnormality. The patient was treated as migraine headaches/trigeminal neuralgia by Dr. Loaiza, and she has been given Tegretol as well as Depakote. The patient is complaining also of back pain radiated to the right lower extremity. OBJECTIVE: VITAL SIGNS: Blood pressure 134/80, temperature 98.1, respiratory rate 20 and pulse 68. HEENT: Pupils are equal and reactive to light. Normal-appearing mucosa of the conjunctivae, oropharynx and nasal membrane mucosa. NECK: Supple. No JVD. No carotid bruit. No lymph node. No thyromegaly. CHEST AND LUNGS: Bilateral symmetrical expansion. Good air exchange. No rales. No rhonchi. CARDIOVASCULAR SYSTEM: PMI not localized. S1, S2. No additional sounds. ABDOMEN: Normoactive bowel sounds. No tenderness. No organomegaly. No masses. EXTREMITIES: No cyanosis, no clubbing, no edema. FOLDING MACHINE TENDER: Alert, awake, oriented x3. No neurological deficit could be appreciated. ASSESSMENT: Severe intractable migraine headache, degenerative spine disease with radiculopathy, type 2 diabetes mellitus, diabetic neuropathy. PLAN: Continue current medication and follow neurology recommendations. We will give the patient also Valium p.r.n. for headache as well as for back pain with muscle spasm. Fall precautions. Melissa Ch MD
[2017-07-27] MEDS: (Novolog) Insulin Aspart, Recombinant 100 u/ml 10 ml vial SC SCH ×4 (08:30→21:50)
[2017-07-27] MEDS: LINACLOTIDE 290 MCG PO SCH ×2 (10:14→18:08)
[2017-07-27] MEDS: Pantoprazole 40 mg EC Tab PO SCH ×2 (10:14→18:09)
[2017-07-27] MEDS: Divalproex 500 mg ER Tab PO SCH (10:15)
[2017-07-27] MEDS: carBAMazepine Chew Tab 100 MG Chew Tab PO SCH ×2 (10:16→22:10)
[2017-07-27] MEDS: (Lantus) Insulin Glargine, Recombinant SC SCH ×2 (10:20→22:12)
[2017-07-27] MEDS: Oxycodone/Acetaminophen 5/325 mg Tab PO PRN (10:25)
[2017-07-27] MEDS: TIZANIDINE 4MG PO SCH (22:10)
--- NOTE | 2017-07-28 02:15 | PN ---
DATE: 07/27/2017 SUBJECTIVE: The patient is seen today, 07/27/2017. Headache is responding to treatment but the patient feels dizzy. OBJECTIVE: VITAL SIGNS: Blood pressure is 95/59, temperature 98, respiratory rate 20, and pulse 73. HEENT: Pupils equal and reactive to light. Normal-appearing mucosa of the conjunctivae, oropharynx, and nasal membrane mucosa. NECK: Supple. No JVD. No carotid bruits or lymph node. No thyromegaly. CHEST AND LUNGS: Bilateral symmetrical expansion. Good air exchange. No rales, no rhonchi. CARDIOVASCULAR SYSTEM: PMI not localized. S1, S2. No additional sounds. ABDOMEN: Normoactive bowel sounds. No tenderness. No organomegaly. No masses. EXTREMITIES: No cyanosis, no clubbing, no edema. GAS MANAGER: Alert, awake, and oriented x2. No neurological deficit could be appreciated. ASSESSMENT: 1. Severe intractable migraine headache. 2. Possible trigeminal neuralgia. 3. Degenerative spine disease with radiculopathy. 4. Type 2 diabetes mellitus. 5. Hypertension. PLAN: May continue current medications and follow neurology recommendations, physical therapy. Melissa Ch MD
--- NOTE | 2017-07-28 08:55 | CP.PCM.PN ---
Subjective - Date & Time of Evaluation Date of Evaluation: 07/28/17 Time of Evaluation: 08:48 - Subjective Subjective: Ms. Ling was seen and examined at the bedside. She is alert, complaining of dizziness but no blurred vision or diplopia. According to the daughter she had episode of nausea earlier but did not inform any staff. She is able to follow simple commands. Echocardiogram showed normal LV systolic function, normal heart chamber with no significant valvular abnormality. MRI of the brain showed small partially calcified meningioma in the left occipito parietal watershed with incidental small venous angioma in the right frontal region. there is no evidence of acute intracranial hemorrhage or infarct. There was no untoward events overnight. Objective - Vital Signs/Intake and Output Vital Signs (last 24 hours): Temp Pulse Resp BP Pulse Ox 98.0 F 68 20 125/80 98 07/28/17 07:35 07/28/17 07:35 07/28/17 07:35 07/28/17 07:35 07/28/17 07:35 Intake and Output: 07/28/17 07/28/17 06:59 18:59 Intake Total 800 Balance 800 - Medications Medications: Current Medications Aspirin (Aspirin Chewable) 81 mg PO DAILY [facility] Last Admin: 07/27/17 10:14 Dose: 81 mg Carbamazepine (Tegretol) 300 mg PO Q12 [facility] Last Admin: 07/27/17 22:10 Dose: 300 mg Diazepam (Valium) 5 mg IVP Q6H PRN PRN Reason: Pain, severe (8-10) Divalproex Sodium (Depakote Er) 500 mg PO DAILY [facility] Last Admin: 07/27/17 10:15 Dose: 500 mg Duloxetine HCl (Cymbalta) 30 mg PO HS [facility] Last Admin: 07/27/17 22:10 Dose: 30 mg Famotidine (Pepcid) 20 mg PO BID [facility] Last Admin: 07/27/17 18:08 Dose: 20 mg Home Med (Patient's Own Medication) 1 tab PO [facility] Last Admin: 07/27/17 22:10 Dose: 1 tab Home Med (Linaclotide [Linzess]) 290 mcg PO BID [facility] Last Admin: 07/27/17 18:08 Dose: 290 mcg Hydrochlorothiazide (Microzide) 12.5 mg PO QOD6 [facility] Last Admin: 07/26/17 17:41 Dose: Not Given Insulin Aspart (Novolog) 0 unit SC ACHS [facility] PRN Reason: Protocol Last Admin: 07/27/17 21:50 Dose: Not Given Insulin Glargine (Lantus) 30 unit SC Q12 [facility] Last Admin: 07/27/17 22:12 Dose: 30 unit Losartan Potassium (Cozaar) 50 mg PO DAILY [facility] Last Admin: 07/27/17 10:14 Dose: 50 mg Meclizine HCl (Antivert) 25 mg PO BID [facility] Metformin HCl (Glucophage) 1,000 mg PO BID [facility] Last Admin: 07/27/17 18:09 Dose: 1,000 mg Metoclopramide HCl (Reglan) 10 mg PO BID PRN PRN Reason: Dyspepsia Ondansetron HCl (Zofran Tab) 8 mg PO Q8 PRN PRN Reason: Nausea/Vomiting Last Admin: 07/27/17 19:36 Dose: 8 mg Pantoprazole Sodium (Protonix Ec Tab) 40 mg PO BID [facility] Last Admin: 07/27/17 18:09 Dose: 40 mg Rosuvastatin Calcium (Crestor) 10 mg PO HS [facility] Last Admin: 07/27/17 22:09 Dose: 10 mg Fluticasone/Salmeterol (Advair Diskus 100/50) 1 puff IH RQ12 PRN PRN Reason: Wheezing Sucralfate (Carafate Tab) 1 gm PO TID [facility] Last Admin: 07/27/17 18:08 Dose: 1 gm - Labs Labs: 07/24/17 15:37 07/24/17 15:37 PT 11.4 SECONDS (9.7-12.2) 07/24/17 15:37 INR 1.0 07/24/17 15:37 APTT 34 SECONDS (21-34) 07/24/17 15:37 - Constitutional Appears: No Acute Distress - Head Exam Head Exam: NORMAL INSPECTION - Neurological Exam Neurological Exam: Alert, Awake, Oriented x3 Neuro motor strength exam: Left Upper Extremity: 5, Right Upper Extremity: 4, Left Lower Extremity: 4, Right Lower Extremity: 4 Additional comments: alert, awake, follows commands, sensation is intact. Assessment and Plan (1) Headache Assessment & Plan: Case discussed with DR. Miller, continue all current medical regimen. Recommend to follow up withg Dr. Loaiza at [address] [place], [place] [address] [address] [facility] [address]. tel. [phone] Status: Acute (2) Dizziness Assessment & Plan: Case discussed with Dr. Miller, recommend antivert 25 mg PO BID, hydration. Status: Acute
[2017-07-28] MEDS: (Novolog) Insulin Aspart, Recombinant 100 u/ml 10 ml vial SC SCH ×4 (09:32→22:01)
[2017-07-28] MEDS ORDERED: Gadodiamide 287 MG/ML VIAL (15ML) IV ONE (10:42)
[2017-07-28] MEDS: Divalproex 500 mg ER Tab PO SCH (10:54)
[2017-07-28] MEDS: (Lantus) Insulin Glargine, Recombinant SC SCH ×2 (10:54→23:00)
[2017-07-28] MEDS: carBAMazepine Chew Tab 100 MG Chew Tab PO SCH ×2 (10:54→22:57)
[2017-07-28] MEDS: LINACLOTIDE 290 MCG PO SCH ×2 (10:55→22:59)
[2017-07-28] MEDS: Pantoprazole 40 mg EC Tab PO SCH ×2 (10:56→18:34)
[2017-07-28] MEDS: TIZANIDINE 4MG PO SCH (22:58)
--- NOTE | 2017-07-29 02:01 | PN ---
DATE: 07/28/2017 DAILY PROGRESS NOTE SUBJECTIVE: The patient is seen today, 07/28/2017. She was feeling nauseated and vomited x1, but the headache is less. OBJECTIVE: VITAL SIGNS: Blood pressure 130/70, temperature 98.2, respiratory rate 18 and pulse 82. HEENT: Pupils are equal and reactive to light. Normal-appearing mucosa of the conjunctivae, oropharynx and nasal membrane mucosa. NECK: Supple. No JVD. No carotid bruit. No lymph node. No thyromegaly. CHEST AND LUNGS: Bilateral symmetrical expansion. Good air exchange. No rales. No rhonchi. CARDIOVASCULAR SYSTEM: PMI not localized. S1, S2. No additional sounds. ABDOMEN: Normoactive bowel sounds. No tenderness. No organomegaly. No masses. EXTREMITIES: No cyanosis, no clubbing, no edema. RESIDENTIAL GAS HEAT TECHNICIAN: Alert, awake, oriented x3. No neurological deficit could be appreciated. ASSESSMENT: 1. Intractable severe migraine headache. 2. Type 2 diabetes mellitus. 3. Possible trigeminal neuralgia. PLAN: Follow neurology recommendations. We will give the patient Reglan as the patient was on Zofran and she still had one episode of vomiting. Melissa Ch MD
[2017-07-29 08:23] VITALS: RESP 18
[2017-07-29] MEDS: (Novolog) Insulin Aspart, Recombinant 100 u/ml 10 ml vial SC SCH (08:30)
[2017-07-29] MEDS: carBAMazepine Chew Tab 100 MG Chew Tab PO SCH (09:46)
[2017-07-29] MEDS: Pantoprazole 40 mg EC Tab PO SCH (09:47)
[2017-07-29] MEDS: Divalproex 500 mg ER Tab PO SCH (09:47)
[2017-07-29] MEDS: (Lantus) Insulin Glargine, Recombinant SC SCH (09:47)
[2017-07-29] MEDS: LINACLOTIDE 290 MCG PO SCH (09:49)
--- NOTE | 2017-07-29 11:09 | CP.PCM.PN ---
Subjective - Date & Time of Evaluation Date of Evaluation: 07/29/17 Time of Evaluation: 11:08 - Subjective Subjective: PT SEEN BY DR. GARCIA LAST NIGHT AND RX FOR D/C GIVEN TO PT'S DAUGHTER BY HIM. PER DR. GARCIA THIS MORNING OK TO D/C PT HOME; PT AND FAMILY ASKING FOR D/C TODAY. TO F/U WITH NEURO IN THE OFFICE WITHIN 1-2 WEEKS. TO F/U WITH DR. GARCIA IN 1 WEEK IN THE OFFICE. NO FURTHER ORDERS. -FOLLOW UP WITH DR. GARCIA IN THE OFFICE WITHIN 1 WEEK OF DISCHARGE---CALL THE OFFICE TOMORROW TO MAKE YOUR APPOINTMENT TIME. -FOLLOW UP WITH DR. VAZQUEZ (NEUROLOGIST) IN THE OFFICE WITHIN 1-2 WEEKS OF DISCHARGE---CALL THE OFFICE TOMORROW TO MAKE YOUR APPOINTMENT TIME. -CONTINUE HOME MEDICATIONS USUAL. -NEW PRESCRIPTIONS INCLUDE: 1) TYLENOL #3 (WITH CODEINE)---TAKE 1 TABLET BY MOUTH TWICE A DAY NEEDED FOR PAIN (TAKE DOSES AT LEAST 8 HOURS APART). 2) TEGRETOL 200 MG (1 TABLET) BY MOUTH TWICE A DAY (MORNING AND EVENING). 3) DEPAKOTE ER 500 MG (1 TABLET) BY MOUTH ONCE A DAY (MORNING). -FOR FURTHER QUESTIONS OR CONCERNS, CONTACT DR. GARCIA' OFFICE. Objective - Vital Signs/Intake and Output Vital Signs (last 24 hours): Temp Pulse Resp BP Pulse Ox 99.3 F 64 18 121/68 96 07/29/17 07:40 07/29/17 07:40 07/29/17 07:40 07/29/17 07:40 07/29/17 07:40 Intake and Output: 07/29/17 07/29/17 06:59 18:59 Intake Total 360 Balance 360 - Medications Medications: Current Medications Aspirin (Aspirin Chewable) 81 mg PO DAILY [facility] Last Admin: 07/29/17 09:47 Dose: 81 mg Carbamazepine (Tegretol) 300 mg PO Q12 [facility] Last Admin: 07/29/17 09:46 Dose: 300 mg Diazepam (Valium) 5 mg PO Q6H PRN PRN Reason: Pain, severe (8-10) Last Admin: 07/28/17 13:24 Dose: 5 mg Divalproex Sodium (Depakote Er) 500 mg PO DAILY [facility] Last Admin: 07/29/17 09:47 Dose: 500 mg Duloxetine HCl (Cymbalta) 30 mg PO [facility] Last Admin: 07/28/17 23:00 Dose: 30 mg Famotidine (Pepcid) 20 mg PO BID [facility] Last Admin: 07/29/17 09:47 Dose: 20 mg Home Med (Patient's Own Medication) 1 tab PO [facility] Last Admin: 07/28/17 22:58 Dose: 1 tab Home Med (Linaclotide [Linzess]) 290 mcg PO BID [facility] Last Admin: 07/29/17 09:49 Dose: 290 mcg Hydrochlorothiazide (Microzide) 12.5 mg PO QOD6 [facility] Last Admin: 07/28/17 18:35 Dose: 12.5 mg Insulin Aspart (Novolog) 0 unit SC ACHS [facility] PRN Reason: Protocol Last Admin: 07/29/17 08:30 Dose: 4 unit Insulin Glargine (Lantus) 30 unit SC Q12 [facility] Last Admin: 07/29/17 09:47 Dose: 30 unit Losartan Potassium (Cozaar) 50 mg PO DAILY [facility] Last Admin: 07/29/17 09:47 Dose: 50 mg Meclizine HCl (Antivert) 25 mg PO BID [facility] Last Admin: 07/29/17 09:47 Dose: 25 mg Metformin HCl (Glucophage) 1,000 mg PO BID [facility] Last Admin: 07/29/17 09:47 Dose: 1,000 mg Metoclopramide HCl (Reglan) 10 mg PO BID PRN PRN Reason: Dyspepsia Last Admin: 07/29/17 09:47 Dose: 10 mg Ondansetron HCl (Zofran Tab) 8 mg PO Q8 PRN PRN Reason: Nausea/Vomiting Last Admin: 07/28/17 13:24 Dose: 8 mg Pantoprazole Sodium (Protonix Ec Tab) 40 mg PO BID [facility] Last Admin: 07/29/17 09:47 Dose: 40 mg Rosuvastatin Calcium (Crestor) 10 mg PO [facility] Last Admin: 07/28/17 22:58 Dose: 10 mg Fluticasone/Salmeterol (Advair Diskus 100/50) 1 puff IH RQ12 PRN PRN Reason: Wheezing Sucralfate (Carafate Tab) 1 gm PO TID [facility] Last Admin: 07/29/17 09:47 Dose: 1 gm - Labs Labs: 07/24/17 15:37 07/24/17 15:37 PT 11.4 SECONDS (9.7-12.2) 07/24/17 15:37 INR 1.0 07/24/17 15:37 APTT 34 SECONDS (21-34) 07/24/17 15:37
[2017-07-29 14:20] VITALS: BP 128/74; PULSE 80; TEMP 98.2; O2SAT 98
--- NOTE | 2017-07-30 07:05 | DS ---
REASON FOR ADMISSION: This is a 57-year-old [place] female with history of multiple medical problems who was admitted for intractable migraine headache with right-sided facial pain. COURSE OF HOSPITALIZATION: The patient was admitted to medical floor, and she had a neurology consult done by Dr. Loaiza. The patient was started on both Depakote and Tegretol for treating possible trigeminal neuralgia. The patient's neurological symptoms gradually improved, and the patient was placed on antiemetics due to nausea and vomiting x1. The patient was discharged home on the current medications to follow up with Neurology, and the patient also was advised to follow with the neurosurgeon in [place] but was following her when she had subarachnoid hemorrhage. FINAL DIAGNOSES: 1. Intractable migraine headache. 2. Possible trigeminal neuralgia. 3. Type 2 diabetes mellitus. 4. Hypertension. 5. Diabetic neuropathy. [facility] MD Dima
== END 2017-07-29 12:27 | disposition home or self-care (01) | DRG 74 ==
LOC: C.ER 14:39 → C.9E 16:23 → EEVIPCON 16:23 → C.6T 17:34
PROVIDERS: ADMIT Internal Medicine; ATTEND Internal Medicine
DX: G50.0 Trigeminal neuralgia (principal); G43.919 Migraine, unspecified, intractable, without status migrainosus; D32.0 Benign neoplasm of cerebral meninges; E11.40 Type 2 diabetes mellitus with diabetic neuropathy, unspecified; Z79.4 Long term (current) use of insulin; E78.00 Pure hypercholesterolemia, unspecified; I10 Essential (primary) hypertension; J45.909 Unspecified asthma, uncomplicated; M81.0 Age-related osteoporosis without current pathological fracture; Z86.718 Personal history of other venous thrombosis and embolism; Z86.73 Personal history of transient ischemic attack (TIA), and cerebral infarction without residual deficits

== ENCOUNTER 2017-12-23 19:23 | Emergency (ER) | payer MEDICARE, MEDICAID ==
[2017-12-23 19:24] VITALS: BMI 28.3
[2017-12-23 19:31] VITALS: BP 138/84; PULSE 63; RESP 20; TEMP 97.6; O2SAT 99
--- NOTE | 2017-12-23 19:51 | C.PDOC ---
History Of Present Illness 57 year old female with a history of diabetes presents to the ED for evaluation of a right-sided rash to the torso for 3 days. Patient describes the rash as painful and burning. Pt notes she had pain for a week and then developed a rash 3 days ago. Notes she checked her sugar, 200 today. No known allergens including foods, medications , or detergents. Has not taken any medication for the symptoms. Denies fever, nausea, vomiting, discharge, chest pain, shortness of breath, difficulty breathing, difficulty swallowing, lip/tongues swelling, chest pain, and any other associated symptoms. Time Seen by Provider: 12/23/17 19:34 Chief Complaint (Nursing): Abnormal Skin Integrity History Per: Patient, Family (daughter) History/Exam Limitations: no limitations Onset/Duration Of Symptoms: Days Current Symptoms Are (Timing): Still Present Quality Of Symptoms: Painful Past Medical History Reviewed: Historical Data, Nursing Documentation, Vital Signs Vital Signs: Last Vital Signs Temp 97.6 F 12/23/17 19:26 Pulse 63 12/23/17 19:26 Resp 20 12/23/17 19:26 BP 138/84 12/23/17 19:26 Pulse Ox 99 12/23/17 19:26 - Medical History PMH: Asthma, Diabetes, Deep Vein Thrombosis, Gastritis (EPIGASTRIC PAIN), Gastrointestinal Ulcer, HTN, Hypercholesterolemia, Osteoporosis Denies: Anxiety, Depression, Chronic Kidney Disease Surgical History: Appendectomy, Endoscopy, - [facility] Procedures ENDOSC POLYPECTOMY OF LG INTEST (04/11/14) ESOPHAGOGASTRODUODENOSCOPY [EGD] W/CLOSED BIOPSY (11/08/14) Family History: States: Unknown Family Hx - Social History Hx Tobacco Use: No Hx Alcohol Use: No Hx Substance Use: No - Immunization History Hx Tetanus Toxoid Vaccination: No Hx Influenza Vaccination: No Hx Pneumococcal Vaccination: No Review Of Systems Constitutional: Negative for: Fever ENT: Negative for: Other (allergies to medications. difficulty swallowing.) Cardiovascular: Negative for: Chest Pain Respiratory: Negative for: Shortness of Breath, Other (difficulty breathing. ) Gastrointestinal: Negative for: Nausea, Vomiting Skin: Negative for: Other (discharge.) Physical Exam - Physical Exam Appears: Well, Non-toxic Skin: Warm, Dry, Other (right-sided torso: vesicular rash on an erythematous base following dermatome. ) Head: Atraumatic, Normacephalic Eye(s): bilateral: Normal Inspection, EOMI Ear(s): Bilateral: Normal Nose: Normal Oral Mucosa: Moist Throat: Normal, No Erythema Neck: Normal ROM, Supple Lymphatic: Normal Exam Chest: Symmetrical Cardiovascular: Rhythm Regular Respiratory: Normal Breath Sounds, No Rales, No Rhonchi, No Wheezing Gastrointestinal/Abdominal: Normal Exam, Soft, No Tenderness Extremity: Normal ROM Neurological/Psych: Oriented x3, Normal Speech ED Course And Treatment O2 Sat by Pulse Oximetry: 99 (RA) Pulse Ox Interpretation: Normal Progress Note: Discussed signs of concern and return precautions. Patient stable for discharge home. Prescribed Zovirax. Disposition - Disposition Disposition: HOME/ ROUTINE Disposition Time: 19:48 Condition: STABLE Additional Instructions: Follow up with your doctor in1 -2 days. Return to ER if symptoms persist or wor sen. Prescriptions: Acyclovir [Zovirax] 800 mg PO 5XD #50 tab Calamine/Pramoxine [Caladryl] 180 ml TP QID PRN #1 bottle PRN Reason: Itching / Pruritus Instructions: Shingles (DC) Forms: [employer] (Serbian) - Clinical Impression Clinical Impression: Herpes zoster - PA / LEAD GENERATION SPECIALIST / Resident Statement MD/DO has reviewed & agrees with the documentation as recorded. - Scribe Statement The provider has reviewed the documentation as recorded by the Scribe (Laura Sanchez) All medical record entries made by the Scribe were at my direction and personally dictated by me. I have reviewed the chart and agree that the record accurately reflects my personal performance of the history, physical exam, medical decision making, and the department course for this patient. I have also personally directed, reviewed, and agree with the discharge instructions and disposition.
== END 2017-12-23 20:06 | disposition home or self-care (01) ==
LOC: C.ER 19:23
DX: B02.9 Zoster without complications (principal); E11.9 Type 2 diabetes mellitus without complications; E78.00 Pure hypercholesterolemia, unspecified; I10 Essential (primary) hypertension; M81.0 Age-related osteoporosis without current pathological fracture

== ENCOUNTER 2018-03-19 11:11 | Inpatient (IN) | payer MEDICARE, MEDICAID ==
[2018-03-19 11:11] VITALS: BMI 28.3
[2018-03-19] MEDS ORDERED: Sodium Chloride 0.9% 1,000 ML IV ONE (12:05)
[2018-03-19] MEDS ORDERED: Sodium Chloride 0.9% 1,000 ML ONE (12:22)
--- NOTE | 2018-03-19 12:27 | C.PDOC ---
History Of Present Illness 57yo female, history of diabetes, hypertension, comes to ER reporting nausea, abdominal pain and intermittent episodes of vomiting x 4 days. She reports the pain is right sided and radiates to her back; patient also reports decreased PO food intake. She otherwise states she has normal bowel movements and denies any dysuria, hematuria, weakness or numbness of lower extremities. She otherwise offers no additional medical complaints. PMD: Calderon Morel Time Seen by Provider: 03/19/18 11:38 Chief Complaint (Nursing): Abdominal Pain History Per: Patient History/Exam Limitations: no limitations Onset/Duration Of Symptoms: Days Current Symptoms Are (Timing): Still Present Location Of Pain/Discomfort: RUQ, RLQ, Periumbilical Radiation Of Pain To:: Back Quality Of Discomfort: "Pain" Associated Symptoms: Nausea, Vomiting, Loss Of Appetite. denies: Diarrhea, Chest Pain, Constipation, Urinary Symptoms Past Medical History Reviewed: Historical Data, Nursing Documentation, Vital Signs Vital Signs: Last Vital Signs Temp 98.0 F 03/19/18 11:19 Pulse 72 03/19/18 11:19 Resp 17 03/19/18 11:19 BP 123/77 03/19/18 11:19 Pulse Ox 100 03/19/18 11:19 - Medical History PMH: Asthma, Diabetes, Deep Vein Thrombosis, Gastritis (EPIGASTRIC PAIN), Gastrointestinal Ulcer, HTN, Hypercholesterolemia, Osteoporosis Denies: Anxiety, Depression, Chronic Kidney Disease Surgical History: Appendectomy, Endoscopy, Other Surgeries: right oopherectomy, hysterectomy - [facility] Procedures ENDOSC POLYPECTOMY OF LG INTEST (04/11/14) ESOPHAGOGASTRODUODENOSCOPY [EGD] W/CLOSED BIOPSY (11/08/14) Family History: States: No Known Family Hx - Social History Hx Tobacco Use: No Hx Alcohol Use: No Hx Substance Use: No - Immunization History Hx Tetanus Toxoid Vaccination: No Hx Influenza Vaccination: No Hx Pneumococcal Vaccination: No Review Of Systems Except As Marked, All Systems Reviewed And Found Negative. Constitutional: Negative for: Fever, Chills Cardiovascular: Negative for: Chest Pain Respiratory: Negative for: Shortness of Breath Gastrointestinal: Positive for: Nausea, Vomiting, Abdominal Pain. Negative for: Diarrhea, Constipation Genitourinary: Negative for: Dysuria, Frequency, Hematuria Neurological: Negative for: Weakness, Numbness Physical Exam - Physical Exam Appears: Non-toxic, No Acute Distress Skin: Normal Color, Warm, Dry Head: Atraumatic, Normacephalic Eye(s): bilateral: Normal Inspection Neck: Normal ROM, Supple Chest: Symmetrical Cardiovascular: Rhythm Regular Respiratory: Normal Breath Sounds, No Wheezing Gastrointestinal/Abdominal: Soft, Tenderness (right upper and lower quadrant tenderness), No Guarding, No Rebound Back: Normal Inspection, No CVA Tenderness Extremity: Normal ROM, No Pedal Edema Neurological/Psych: Oriented x3 ED Course And Treatment - Laboratory Results Result Diagrams: 03/19/18 12:26 03/19/18 12:26 O2 Sat by Pulse Oximetry: 100 (RA) Pulse Ox Interpretation: Normal - CT Scan/US Abdominal US Other Rad Studies (CT/US): Radiology Report Reviewed CT/US Interpretation: Accession No. : [id number]. Patient Name / ID : ELIZABETH Hu / [id number]. Exam Date : 03/19/2018 13:18:00 ( Approved ). Study Comment : Sex / Age : F / 57Y. Creator : Dede Genao MD. Dictator : Dede Genao MD. Shove Up : [employer] [place] Attendant : Dede Genao MD. Approver2 : Report Date : 03/19/2018 14:33:17. My Comment : . Date of service: 03/19/2018. HISTORY: RUQ abd pain, vomiting. COMPARISON: CT abdomen and pelvis without contrast performed 06/09/17, abdominal ultrasound performed 07/16/16. TECHNIQUE: Sonographic evaluation of the right upper quadrant of the abdomen. FINDINGS: LIVER: Measures 22.5 cm in length. Echogenic liver may be seen in setting of hepatic parenchymal disease or fatty infiltration. No focal hepatic mass identified. The main portal vein appears patent with normal directional flow. No intrahepatic bile duct dilatation. GALLBLADDER: No gallstones. No gallbladder wall thickening or pericholecystic edema. Negative sonographic Lozoya's sign as assessed by the public health technician. COMMON BILE DUCT: Measures 6 mm. PANCREAS: Not well-visualized. RIGHT KIDNEY: Measures approximately 11.7 x 3.4 x 4.5 cm. No obstructing calculus or hydronephrosis identified. AORTA: Limited visualization appears grossly unremarkable. IVC: Limited visualization appears grossly unremarkable. OTHER FINDINGS: None . IMPRESSION: Hepatomegaly. Echogenic liver may be seen in setting of hepatic parenchymal disease or fatty infiltration. CT Abdomen/Pelvis Other Rad Studies (CT/US): Radiology Report Reviewed CT/US Interpretation: FINDINGS: LOWER THORAX: Unremarkable. LIVER: Moderate hepatic steatosis is again noted. GALLBLADDER AND BILE DUCTS: No evidence of acute cholecystitis or biliary ductal dilatation. PANCREAS: Unremarkable. No gross lesion or ductal dilatation. SPLEEN: Unremarkable. ADRENALS: Unremarkable. No mass. KIDNEYS AND URETERS: Unremarkable. No hydronephrosis. No solid mass. VASCULATURE: IVC filter is seen in place no aortic aneurysm. No aortic atherosclerotic calcification or mural plaque present. BOWEL: Unremarkable. No obstruction. No gross mural thickening. APPENDIX: Normal appendix. PERITONEUM: Unremarkable. No free fluid. No free air. LYMPH NODES: Unremarkable. No enlarged lymph nodes. BLADDER: Unremarkable. REPRODUCTIVE: The uterus and adnexa are not visualized. BONES: Again seen are multiple small sclerotic bony lesion in the lower thoracic and lumbar spine stable since the prior exams. No evidence of destructive bony lesion. OTHER FINDINGS: None. IMPRESSION: No evidence of appendicitis.. Hepatomegaly and moderate hepatic steatosis again noted. No evidence of cholecystitis pancreatitis or bowel obstruction. Medical Decision Making Medical Decision Making: Impression: 57yo female with right sided abdominal pain r/o cholecystitis, renal colic, pyelonephritis, colitis Plan: -- Labs -- CXR -- US Abdomen -- Urinalysis -- Pepcid 20mg PO -- Toradol 30mg IV -- Zofran 4mg IV -- IV Fluids Labs and imaging reviewed. Results discussed with patient and family. On re-exam, the patient reports she still has pain. 15:[address] Morris, who recommends admission under Dr. Morel. Case was discussed with dr. Morel who agrees to admit the patient. Disposition - Disposition Disposition: HOSPITALIZED Disposition Time: 14:00 Condition: STABLE - POA Present On Arrival: None - Clinical Impression Clinical Impression: Vomiting, Abdominal wall pain - PA / MEDICAL LAB DIRECTOR / Resident Statement MD/DO has reviewed & agrees with the documentation as recorded. - Scribe Statement The provider has reviewed the documentation as recorded by the Pancho Escobar Provider Attestation: All medical record entries made by the Pancho were at my direction and personally dictated by me. I have reviewed the chart and agree that the record accurately reflects my personal performance of the history, physical exam, medical decision making, and the department course for this patient. I have also personally directed, reviewed, and agree with the discharge instructions and disposition.
[2018-03-19 12:30] LABS: BASO % 0.4 % (0.0-2.0); EOS # 0.1 K/uL (0.0-0.7); HEMOGLOBIN 13.3 g/dL (11.0-16.0); LYMPH # 2.7 K/uL (1.0-4.3); LYMPH % 53.5 % (20.0-40.0); MEAN CORPUSCULAR HEMOGLOBIN 28.5 pg (27.0-31.0); MEAN CORPUSCULAR HGB CONC 32.4 g/dL (33.0-37.0); MEAN PLATELET VOLUME 9.9 fL (7.2-11.7); MONO # 0.3 K/uL (0.0-0.8); MONO % 5.7 % (0.0-10.0); NEUT # 1.9 K/uL (1.8-7.0); NEUT % 38.4 % (50.0-75.0); NRBC % 0.2 % (0.0-2.0); RBC 4.67 Mil/uL (3.80-5.20); RED CELL DISTRIBUTION WIDTH 14.5 % (11.5-14.5)
[2018-03-19 12:36] LABS: MEAN CELL VOLUME 87.8 fL (81.0-99.0)
[2018-03-19 12:37] LABS: SQUAMOUS EPITHIAL < 1 /hpf (0-5); URINE BILIRUBIN NEGATIVE (NEGATIVE); URINE BLOOD NEGATIVE (NEGATIVE); URINE CLARITY Clear (Clear); URINE COLOR Yellow (YELLOW); URINE GLUCOSE (UA) 3+ mg/dL (Normal); URINE LEUKOCYTE ESTERASE NEG Leu/uL (Negative); URINE PROTEIN NEGATIVE (NEGATIVE); URINE UROBILINOGEN NORMAL mg/dL (0.2-1.0)
[2018-03-19 12:52] LABS: ALB/GLOB RATIO 1.4 (1.0-2.1); ALBUMIN 4.9 g/dL (3.5-5.0); ALT/SGPT < 6 U/L (9-52); AST/SGOT 38 U/L (14-36); BLOOD UREA NITROGEN 13 mg/dL (7-17); CALCIUM 9.3 mg/dl (8.6-10.4); GFR NON-AFRICAN AMERICAN > 60; LIPASE 123 U/L (23-300)
--- NOTE | 2018-03-19 13:55 | RAD ---
Date of service: 03/19/2018 PROCEDURE: CHEST RADIOGRAPH, 1 VIEW HISTORY: Epigastric/abdominal pain. COMPARISON: 07/24/2017 FINDINGS: LUNGS: Clear. PLEURA: No pneumothorax or pleural fluid seen. CARDIOVASCULAR: No aortic atherosclerotic calcification present. No radiographic findings to suggest acute or significant cardiovascular disease. OSSEOUS STRUCTURES: No significant abnormalities. VISUALIZED UPPER ABDOMEN: Normal. OTHER FINDINGS: None. IMPRESSION: No active disease. No acute/significant interval changes.
--- NOTE | 2018-03-19 14:36 | US ---
Date of service: 03/19/2018 HISTORY: RUQ abd pain, vomiting COMPARISON: CT abdomen and pelvis without contrast performed 06/09/17, abdominal ultrasound performed 07/16/16 TECHNIQUE: Sonographic evaluation of the right upper quadrant of the abdomen. FINDINGS: LIVER: Measures 22.5 cm in length. Echogenic liver may be seen in setting of hepatic parenchymal disease or fatty infiltration. No focal hepatic mass identified. The main portal vein appears patent with normal directional flow. No intrahepatic bile duct dilatation. GALLBLADDER: No gallstones. No gallbladder wall thickening or pericholecystic edema. Negative sonographic Lozoya's sign as assessed by the wash worker. COMMON BILE DUCT: Measures 6 mm. PANCREAS: Not well-visualized. RIGHT KIDNEY: Measures approximately 11.7 x 3.4 x 4.5 cm. No obstructing calculus or hydronephrosis identified. AORTA: Limited visualization appears grossly unremarkable. IVC: Limited visualization appears grossly unremarkable. OTHER FINDINGS: None . IMPRESSION: Hepatomegaly. Echogenic liver may be seen in setting of hepatic parenchymal disease or fatty infiltration.
[2018-03-19] MEDS ORDERED: Morphine 4 MG/ML VIAL ONE (15:41)
[2018-03-19] MEDS ORDERED: Iohexol 300 100 ML IJ ONE (16:15)
--- NOTE | 2018-03-19 16:34 | CP.PCM.PN ---
Subjective - Date & Time of Evaluation Date of Evaluation: 03/19/18 Time of Evaluation: 16:00 - Subjective Subjective: PGY2 Progress Note for Dr. Bowen Patient is a 57 year old F with PMHx of subarachnoid hemorrhage (2015), asthma, DMII, HTN, HLD, migraines, fatty liver, urge incontinence, depression who presents today for 4 days of worsening abdominal pain with nausea and vomiting. Patient says the pain is sharp throughout the right side and radiates to the right flank. Patient says at it worst it is 10/10 pain, but after receiving pain medication it is 5/10. Patient also admits to nausea and about 1 episode of vomiting per day for the past 4 days. Patient says she vomited up food. Patient has little appetite, but has been eating some. Patient is tolerating liquids. Patient is having normal bowel movements and denies any blood in the stool. Patient says sometimes she gets some burning with urination, but denies hematuria. Patient also admits to chronic headaches which she currently admits to having. Patient denies chest pain or shortness of breath. All: penicillin- rash PMHx: subarachnoid hemorrhage (2016), asthma, DMII, HTN, HLD, migraines, fatty liver, urge incontinence, depression Psurg: c section x 2 (in ), hysterectomy (late ) Famhx: Father: of stomach cancer at age 74 Social: denies alcohol, drugs, tobacco Objective - Vital Signs/Intake and Output Vital Signs (last 24 hours): Temp Pulse Resp BP Pulse Ox 99.4 F 60 18 129/75 97 03/19/18 16:21 03/19/18 16:21 03/19/18 16:21 03/19/18 16:21 03/19/18 16:21 - Medications Medications: Current Medications Duloxetine HCl (Cymbalta) 30 mg PO QID [facility] Insulin Aspart (Novolog) 15 unit SC AC JE Insulin Glargine (Lantus) 40 unit SC DAILY JE Insulin Glargine (Lantus) 60 unit SC HS JE Insulin Human Regular (Novolin R) 0 unit SC ACHS JE; Protocol Ketorolac Tromethamine (Toradol) 30 mg IVP Q6H PRN PRN Reason: Pain, severe (8-10) Losartan Potassium (Cozaar) 50 mg PO DAILY JE Metformin HCl (Glucophage) 500 mg PO BID JE Metoclopramide HCl (Reglan) 5 mg PO BID JE Oxybutynin Chloride (Ditropan Tab) 5 mg PO HS JE Rosuvastatin Calcium (Crestor) 5 mg PO HS JE Sucralfate (Carafate Tab) 1 gm PO BID JE - Labs Labs: 03/19/18 12:26 03/19/18 12:26 - Constitutional Appears: Non-toxic, No Acute Distress - Head Exam Head Exam: ATRAUMATIC, NORMAL INSPECTION, NORMOCEPHALIC - Eye Exam Eye Exam: EOMI, Normal appearance - ENT Exam ENT Exam: Normal Oropharynx - Respiratory Exam Respiratory Exam: Clear to Ausculation Bilateral, NORMAL BREATHING PATTERN. absent: Wheezes - Cardiovascular Exam Cardiovascular Exam: REGULAR RHYTHM, RRR, +S1, +S2 - GI/Abdominal Exam GI & Abdominal Exam: Soft, Tenderness (generalized tenderness), Normal Bowel Sounds. absent: Distended, Firm, Guarding - Extremities Exam Extremities Exam: Full ROM, Normal Inspection. absent: Pedal Edema - Back Exam Back Exam: NORMAL INSPECTION. absent: CVA tenderness (L), CVA tenderness (R) - Neurological Exam Neurological Exam: Alert, Awake, Oriented x3 - Psychiatric Exam Psychiatric exam: Anxious, Normal Affect - Skin Skin Exam: Intact, Normal Color, Warm Assessment and Plan - Assessment and Plan (Free Text) Assessment: Abdominal Pain abd u/s: hepatomegaly, echogenic liver may be seen in setting of hepatic parenchymal disease or fatty infiltration f/u CT abd/ pelvis Dr. Morris consulted, help appreciated continue home medications: Sucralfate 1gm po BID, Reglan 5mg po BID, Bentyl 20mg po BID Linzess and Dexilant NF Toradol 30mg ivp q6h prn Protonix 40mg po daily low consistent, heart healthy, bland diet DMII continue home meds: Novolog 15 u sc ac, Lantus 40 u sc daily, Lantus 60 u SC HS Metformin 500mg po BID Lantus 30 u sc HS on 03/19/18 since patient eating less today ISS ACHS hypoglycemia protocol accuchecks ACHS adjust insulin based on po intake many home diabetic medications NF f/u HgA1C HTN Losartan 50mg po daily f/u TSH, free T4 HLD simvastatin NF Crestor 5mg po HS Fenofibrate 145 po HS f/u lipid panel Urge Incontinence continue home medication: Ditropan 5mg po HS Depression Cymbalta 30mg po QID Prophylaxis Protonix 40mg po daily SCDs Discussed with Dr. Bowen
[2018-03-19] MEDS ORDERED: Dextrose 50% SYRINGE Inj (50 ml) IV PRN (16:41)
[2018-03-19] MEDS ORDERED: Glucagon Recombinant 1 mg Inj IM PRN (16:41)
[2018-03-19] MEDS: (Novolin R) Insulin Human Regular 100 units/ml vial SC SCH ×2 (16:47→23:01)
[2018-03-19] MEDS: Pantoprazole 40 mg EC Tab PO SCH (16:48)
[2018-03-19] MEDS ORDERED: Pantoprazole 40 mg EC Tab PO ONE (16:52)
--- NOTE | 2018-03-19 17:20 | CT ---
Date of service: 03/19/2018 PROCEDURE: CT Abdomen and Pelvis with contrast HISTORY: RLQ abd pain, vomiting COMPARISON: Comparison is made to the previous study dated 06/09/2017 TECHNIQUE: Contrast dose: 100 mL of Omnipaque 300 intravenously Radiation dose: Total exam DLP = 636.33 mGy-cm. This CT exam was performed using one or more of the following dose reduction techniques: Automated exposure control, adjustment of the mA and/or kV according to patient size, and/or use of iterative reconstruction technique. FINDINGS: LOWER THORAX: Unremarkable. LIVER: Moderate hepatic steatosis is again noted. GALLBLADDER AND BILE DUCTS: No evidence of acute cholecystitis or biliary ductal dilatation. PANCREAS: Unremarkable. No gross lesion or ductal dilatation. SPLEEN: Unremarkable. ADRENALS: Unremarkable. No mass. KIDNEYS AND URETERS: Unremarkable. No hydronephrosis. No solid mass. VASCULATURE: IVC filter is seen in place no aortic aneurysm. No aortic atherosclerotic calcification or mural plaque present. BOWEL: Unremarkable. No obstruction. No gross mural thickening. APPENDIX: Normal appendix. PERITONEUM: Unremarkable. No free fluid. No free air. LYMPH NODES: Unremarkable. No enlarged lymph nodes. BLADDER: Unremarkable. REPRODUCTIVE: The uterus and adnexa are not visualized. BONES: Again seen are multiple small sclerotic bony lesion in the lower thoracic and lumbar spine stable since the prior exams. No evidence of destructive bony lesion. OTHER FINDINGS: None. IMPRESSION: No evidence of appendicitis.. Hepatomegaly and moderate hepatic steatosis again noted. No evidence of cholecystitis pancreatitis or bowel obstruction.
[2018-03-19] MEDS ORDERED: (Lantus) Insulin Glargine, Recombinant SC ONE (22:00)
[2018-03-20 06:58] LABS: BASO % 0.5 % (0.0-2.0); EOS # 0.1 K/uL (0.0-0.7); HEMOGLOBIN 12.2 g/dL (11.0-16.0); LYMPH % 62.2 % (20.0-40.0); MEAN CELL VOLUME 87.4 fL (81.0-99.0); MEAN CORPUSCULAR HEMOGLOBIN 28.6 pg (27.0-31.0); MEAN CORPUSCULAR HGB CONC 32.7 g/dL (33.0-37.0); MEAN PLATELET VOLUME 9.8 fL (7.2-11.7); MONO # 0.3 K/uL (0.0-0.8); NEUT # 1.4 K/uL (1.8-7.0); NEUT % 28.3 % (50.0-75.0); RBC 4.26 Mil/uL (3.80-5.20); RED CELL DISTRIBUTION WIDTH 14.3 % (11.5-14.5); WHITE BLOOD COUNT 4.8 K/uL (4.8-10.8)
[2018-03-20 07:00] LABS: ALB/GLOB RATIO 1.6 (1.0-2.1); ALBUMIN 4.1 g/dL (3.5-5.0); ALT/SGPT 16 U/L (9-52); AST/SGOT 18 U/L (14-36); BLOOD UREA NITROGEN 14 mg/dL (7-17); CALCIUM 8.8 mg/dl (8.6-10.4); GFR NON-AFRICAN AMERICAN > 60
[2018-03-20] MEDS: (Novolin R) Insulin Human Regular 100 units/ml vial SC SCH ×4 (07:20→22:12)
[2018-03-20] MEDS: Pantoprazole 40 mg EC Tab PO SCH (09:04)
[2018-03-20] MEDS: (Novolog) Insulin Aspart, Recombinant 100 u/ml 10 ml vial SC SCH ×3 (09:07→17:10)
[2018-03-20] MEDS ORDERED: (Lantus) Insulin Glargine, Recombinant SC SCH ×2 (10:00→22:00)
--- NOTE | 2018-03-20 10:21 | CP.PCM.PN ---
Subjective - Date & Time of Evaluation Date of Evaluation: 03/20/18 Time of Evaluation: 10:21 - Subjective Subjective: PGY2 Medicine Note for Dr. Morel Patient seen and examined this morning at bedside. Patient is still complaining of abdominal pain, most severe in the right upper quadrant. She is having difficulty eating because she has no appetite. Patient's daughter is at bedside. She denies fevers, chills, nausea, vomiting, diarrhea or constipation. Objective - Vital Signs/Intake and Output Vital Signs (last 24 hours): Temp Pulse Resp BP Pulse Ox 97.5 F L 53 L 20 143/70 96 03/20/18 07:37 03/20/18 07:37 03/20/18 07:37 03/20/18 07:37 03/20/18 07:37 - Medications Medications: Current Medications Dextrose (Dextrose 50% Inj) 0 ml IV STAT PRN; Protocol PRN Reason: Hypoglycemia Protocol Dextrose (Glutose 15) 0 gm PO ONCE PRN; Protocol PRN Reason: Hypoglycemia Protocol Dicyclomine HCl (Bentyl) 20 mg PO BID [facility] Last Admin: 03/20/18 09:04 Dose: 20 mg Duloxetine HCl (Cymbalta) 30 mg PO QID [facility] Last Admin: 03/20/18 09:04 Dose: 30 mg Fenofibrate (Tricor) 145 mg PO QPM [facility] Last Admin: 03/19/18 18:48 Dose: 145 mg Glucagon (Glucagen Diagnostic Kit) 0 mg IM STAT PRN; Protocol PRN Reason: Hypoglycemia Protocol Heparin Sodium (Porcine) (Heparin) 5,000 units SC Q12H [facility] Last Admin: 03/20/18 09:12 Dose: 5,000 units Dextrose (Dextrose 5% In Water 1000 Ml) 1,000 mls @ 0 mls/hr IV .Q0M PRN; Protocol PRN Reason: Hypoglycemia Protocol Insulin Aspart (Novolog) 15 unit SC AC [facility] Last Admin: 03/20/18 09:07 Dose: Not Given Insulin Glargine (Lantus) 20 unit SC DAILY [facility] Insulin Human Regular (Novolin R) 0 unit SC ACHS [facility]; Protocol Last Admin: 03/20/18 07:20 Dose: Not Given Ketorolac Tromethamine (Toradol) 30 mg IVP Q6H PRN PRN Reason: Pain, severe (8-10) Last Admin: 03/20/18 02:12 Dose: 30 mg Losartan Potassium (Cozaar) 50 mg PO DAILY [facility] Last Admin: 03/20/18 09:11 Dose: 50 mg Metformin HCl (Glucophage) 500 mg PO BID [facility] Last Admin: 03/20/18 09:11 Dose: 500 mg Metoclopramide HCl (Reglan) 5 mg PO BID [facility] Last Admin: 03/20/18 09:04 Dose: 5 mg Oxybutynin Chloride (Ditropan Tab) 5 mg PO HS [facility] Last Admin: 03/19/18 21:58 Dose: 5 mg Pantoprazole Sodium (Protonix Ec Tab) 40 mg PO DAILY [facility] Last Admin: 03/20/18 09:04 Dose: 40 mg Rosuvastatin Calcium (Crestor) 5 mg PO HS [facility] Last Admin: 03/19/18 22:37 Dose: 5 mg Sucralfate (Carafate Tab) 1 gm PO BID [facility] Last Admin: 03/20/18 09:04 Dose: 1 gm - Labs Labs: 03/20/18 06:32 03/20/18 06:32 - Constitutional Appears: Non-toxic, No Acute Distress - Head Exam Head Exam: ATRAUMATIC, NORMOCEPHALIC - Eye Exam Eye Exam: Normal appearance - ENT Exam ENT Exam: Mucous Membranes Moist - Neck Exam Neck Exam: absent: Lymphadenopathy - Respiratory Exam Respiratory Exam: Clear to Ausculation Bilateral, NORMAL BREATHING PATTERN. absent: Accessory Muscle Use, Rales, Rhonchi, Wheezes, Respiratory Distress - Cardiovascular Exam Cardiovascular Exam: REGULAR RHYTHM, +S1 - GI/Abdominal Exam GI & Abdominal Exam: Soft, Tenderness (RUQ>epigastric>RLQ). absent: Distended, Firm, Guarding, Rigid - Extremities Exam Extremities Exam: absent: Calf Tenderness, Pedal Edema - Neurological Exam Neurological Exam: Alert, Awake, Oriented x3 - Psychiatric Exam Psychiatric exam: Normal Affect, Normal Mood - Skin Skin Exam: Dry, Warm Assessment and Plan - Assessment and Plan (Free Text) Plan: Abdominal Pain likely secondary to poorly controlled diabetes - Diabetic Intestinal enteropathy Dr. Morris consulted, help appreciated Abd u/s: hepatomegaly, echogenic liver may be seen in setting of hepatic parenchymal disease or fatty infiltration CT abd/ pelvis: No evidence of appendicitis. Hepatomegaly and moderate hepatic steatosis. No evidence of cholecystitis, pancreatitis or bowel obstruction. continue home medications: Sucralfate 1gm po BID, Reglan 5mg po BID, Bentyl 20mg po BID Linzess and Dexilant NF Toradol 30mg ivp q6h prn Protonix 40mg po daily low consistent, heart healthy, bland diet Uncontrolled DMII hypoglycemia protocol accuchecks ACHS adjust insulin based on po intake many home diabetic medications NF HgA1c 9.0 continue home meds: * Novolog 15 u sc ac * Lantus 40 u sc daily (changed to 20 units SC due to decreased appetite) * Lantus 60 u SC HS - may need to hold if patient continues to not eat appropriately * Metformin 500mg po BID * ISS ACHS HTN Losartan 50mg po daily TSH 1.29, free T4 0.89 HLD simvastatin NF --> Crestor 5mg po HS Fenofibrate 145 po HS Lipid Panel: LDL 110, HDL 47, Triglycerides 198 Urge Incontinence continue home medication: Ditropan 5mg po HS Depression Cymbalta 30mg po QID (also for diabetic neuropathy) Prophylaxis Protonix 40mg po daily SCDs Case discussed with Dr. Adriel Fernández Hill PGY2
--- NOTE | 2018-03-20 16:05 | CP.PCM.CON ---
History of Present Illness - History of Present Illness History of Present Illness: GI Fellow PGY4, consult note. Patient is 57F presenting with abdominal pain and nausea. She states she was feeling well until Friday when she started having nausea and non-bloody vomiting. She now only has nausea. The abdominal pain is epigastric and right- sided. The pain is worse with pressure. No significant associate with food. The pain is moderate at this time. She has been taking her home meds regularly. She denies taking NSAIDs. Previous endoscopy shows LA grade B esophagitis, small HH, gastritis. Previous Colonoscopy normal findings. Home meds include: antidiabetic meds, simvastatin, bentyl, ppi, oxybutynin, l osartan, reglan, cymbalta, carafate, linzess PMHx - HTN, DM, obesity, subarachnoid hemorrhage, migraines +/- trigeminal neuralgia. PSHx- Total hysterectomy, C sections FMHx - father of stomach cancer at age 74. SocHx - denies tobacco, alcohol use. 12pt ROS completed and negative except for above. 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 - RENAL Hx Chronic Kidney Disease: No - ENDOCRINE/METABOLIC Hx Diabetes Mellitus Type 2: Yes - HEMATOLOGICAL/ONCOLOGICAL Hx Blood Disorders: No (SEE COMMENT) Hx Blood Transfusions: No Other/Comment: DVT 2015 - INTEGUMENTARY Hx Dermatological Problems: No - MUSCULOSKELETAL/RHEUMATOLOGICAL Hx Osteoporosis: Yes - GASTROINTESTINAL Hx Gastritis: Yes (EPIGASTRIC PAIN) - GENITOURINARY/GYNECOLOGICAL Hx Genitourinary Disorders: No Hx Urinary Tract Infection: No Other/Comment: HYSTERECTOMY FOR BLEEDING - PSYCHIATRIC Hx Anxiety: No Hx Depression: No Hx Substance Use: No - SURGICAL HISTORY Hx Appendectomy: Yes - ANESTHESIA Hx Anesthesia: Yes Hx Anesthesia Reactions: No Hx Malignant Hyperthermia: No Meds Allergies/Adverse Reactions: Allergies Allergy/AdvReac Type Severity Reaction Status Date / Time Penicillins Allergy Intermediate RASH Verified 03/19/18 11:16 - Medications Medications: Current Medications Dextrose (Dextrose 50% Inj) 0 ml IV STAT PRN; Protocol PRN Reason: Hypoglycemia Protocol Dextrose (Glutose 15) 0 gm PO ONCE PRN; Protocol PRN Reason: Hypoglycemia Protocol Dicyclomine HCl (Bentyl) 20 mg PO BID [facility] Last Admin: 03/20/18 09:04 Dose: 20 mg Docusate Sodium (Colace) 100 mg PO BID [facility] Duloxetine HCl (Cymbalta) 30 mg PO QID [facility] Last Admin: 03/20/18 13:39 Dose: 30 mg Fenofibrate (Tricor) 145 mg PO QPM [facility] Last Admin: 03/19/18 18:48 Dose: 145 mg Glucagon (Glucagen Diagnostic Kit) 0 mg IM STAT PRN; Protocol PRN Reason: Hypoglycemia Protocol Heparin Sodium (Porcine) (Heparin) 5,000 units SC Q12H [facility] Last Admin: 03/20/18 09:12 Dose: 5,000 units Dextrose (Dextrose 5% In Water 1000 Ml) 1,000 mls @ 0 mls/hr IV .Q0M PRN; Corinne col PRN Reason: Hypoglycemia Protocol Insulin Aspart (Novolog) 15 unit SC AC [facility] Last Admin: 03/20/18 11:39 Dose: 15 units Insulin Glargine (Lantus) 20 unit SC DAILY [facility] Insulin Glargine (Lantus) 60 unit SC HS [facility] Insulin Human Regular (Novolin R) 0 unit SC ACHS [facility]; Protocol Last Admin: 03/20/18 11:39 Dose: Not Given Ketorolac Tromethamine (Toradol) 30 mg IVP Q6H PRN PRN Reason: Pain, severe (8-10) Last Admin: 03/20/18 02:12 Dose: 30 mg Losartan Potassium (Cozaar) 50 mg PO DAILY [facility] Last Admin: 03/20/18 09:11 Dose: 50 mg Metformin HCl (Glucophage) 500 mg PO BID [facility] Last Admin: 03/20/18 09:11 Dose: 500 mg Metoclopramide HCl (Reglan) 5 mg PO BID [facility] Last Admin: 03/20/18 09:04 Dose: 5 mg Oxybutynin Chloride (Ditropan Tab) 5 mg PO HS [facility] Last Admin: 03/19/18 21:58 Dose: 5 mg Pantoprazole Sodium (Protonix Ec Tab) 40 mg PO DAILY [facility] Last Admin: 03/20/18 09:04 Dose: 40 mg Rosuvastatin Calcium (Crestor) 5 mg PO HS [facility] Last Admin: 03/19/18 22:37 Dose: 5 mg Sucralfate (Carafate Tab) 1 gm PO BID [facility] Last Admin: 03/20/18 09:04 Dose: 1 gm Physical Exam - Constitutional Appears: Non-toxic, No Acute Distress - Head Exam Head Exam: ATRAUMATIC, NORMAL INSPECTION - Eye Exam Eye Exam: EOMI, Normal appearance - Respiratory Exam Respiratory Exam: Clear to Auscultation Bilateral, NORMAL BREATHING PATTERN - Cardiovascular Exam Cardiovascular Exam: REGULAR RHYTHM, +S1, +S2 - GI/Abdominal Exam GI & Abdominal Exam: Normal Bowel Sounds, Soft, Tenderness. absent: Distended, Guarding - Extremities Exam Extremities exam: Positive for: pedal edema. Negative for: normal inspection - Neurological Exam Neurological exam: Alert, CN II-XII Intact, Oriented x3 - Psychiatric Exam Psychiatric exam: Anxious, Normal Affect - Skin Skin Exam: Normal Color, Warm Results - Vital Signs Recent Vital Signs: Last Vital Signs Temp 97.5 F L 03/20/18 07:37 Pulse 53 L 03/20/18 07:37 Resp 20 03/20/18 07:37 BP 143/70 03/20/18 07:37 Pulse Ox 96 03/20/18 07:37 - Labs Result Diagrams: 03/20/18 06:32 03/20/18 06:32 Labs: Laboratory Results - last 24 hr 03/19/18 03/19/18 03/19/18 16:20 20:01 20:01 WBC RBC Hgb Hct MCV MCH MCHC RDW Plt Count MPV Neut % (Auto) Lymph % (Auto) Dane % (Auto) Eos % (Auto) Baso % (Auto) Neut # (Auto) Lymph # (Auto) Dane # (Auto) Eos # (Auto) Baso # (Auto) Sodium Potassium Chloride Carbon Dioxide Anion Gap BUN Creatinine Est GFR ( Amer) Est GFR (Non-Af Amer) POC Glucose (mg/dL) 118 H Random Glucose Hemoglobin A1c 9.0 H Calcium Phosphorus Magnesium Total Bilirubin AST ALT Alkaline Phosphatase Total Protein Albumin Globulin Albumin/Globulin Ratio Triglycerides 198 H D Cholesterol 163 LDL Cholesterol Direct 110 HDL Cholesterol 47 Free T4 TSH 3rd Generation 1.29 03/19/18 03/19/18 03/20/18 20:01 22:19 06:12 WBC RBC Hgb Hct MCV MCH MCHC RDW Plt Count MPV Neut % (Auto) Lymph % (Auto) Dane % (Auto) Eos % (Auto) Baso % (Auto) Neut # (Auto) Lymph # (Auto) Dane # (Auto) Eos # (Auto) Baso # (Auto) Sodium Potassium Chloride Carbon Dioxide Anion Gap BUN Creatinine Est GFR ( Amer) Est GFR (Non-Af Amer) POC Glucose (mg/dL) 216 H 136 H Random Glucose Hemoglobin A1c Calcium Phosphorus Magnesium Total Bilirubin AST ALT Alkaline Phosphatase Total Protein Albumin Globulin Albumin/Globulin Ratio Triglycerides Cholesterol LDL Cholesterol Direct HDL Cholesterol Free T4 0.89 TSH 3rd Generation 03/20/18 03/20/18 03/20/18 06:32 06:32 11:30 WBC 4.8 RBC 4.26 Hgb 12.2 Hct 37.3 MCV 87.4 MCH 28.6 MCHC 32.7 L RDW 14.3 Plt Count 284 MPV 9.8 Neut % (Auto) 28.3 L Lymph % (Auto) 62.2 H Dane % (Auto) 6.0 Eos % (Auto) 3.0 Baso % (Auto) 0.5 Neut # (Auto) 1.4 L Lymph # (Auto) 3.0 Dane # (Auto) 0.3 Eos # (Auto) 0.1 Baso # (Auto) 0.0 Sodium 137 Potassium 3.4 L Chloride 104 Carbon Dioxide 27 Anion Gap 10 BUN 14 Creatinine 0.6 L Est GFR ( Amer) > 60 Est GFR (Non-Af Amer) > 60 POC Glucose (mg/dL) 172 H Random Glucose 131 H D Hemoglobin A1c Calcium 8.8 Phosphorus 3.4 Magnesium 2.1 Total Bilirubin 0.2 AST 18 ALT 16 Alkaline Phosphatase 51 Total Protein 6.7 Albumin 4.1 Globulin 2.6 Albumin/Globulin Ratio 1.6 Triglycerides Cholesterol LDL Cholesterol Direct HDL Cholesterol Free T4 TSH 3rd Generation Assessment & Plan - Assessment and Plan (Free Text) Assessment: #Abdominal pain #Hepatomegaly with hepatosteatosis #Likely NAFLD #Neutropenia, mild, ANC 1,400. #Hx of esophagitis, gastritis #Uncontrolled DM, HbA1c 9.0 on multiple medications #HTN/Obesity #Migraines PLAN: -CT and U/S reviewed. No obvious acute findings. Hepatomegaly with steatosis. -Patient likely has NAFLD and very large liver which may contribute to current complaints however, cannot r/o stomach etiology, gastroparesis. -Obtain w/u for hepatomegaly autoimmune, iron, hepatitis panel. -Consider EGD -Patient is still having nausea, will decrease diet to full liquids. Diet can be advance to puree, low fat, low fiber diet when tolerating. -Goal Blood glucose less than 200. -Start Zofran IV prn -Reglan PO AC Case discussed with Dr. Morris, see attestation. - Date & Time Date: 03/20/18 Time: 16:04
[2018-03-20] MEDS: POLYETHYLENE GLYCOL 3350 17 GM/Dose PACKET PO SCH (18:06)
[2018-03-20 20:10] LABS: IRON 31 ug/dL (37-170)
[2018-03-20 20:21] LABS: % IRON SATURATION 9 (20-55); TOTAL IRON BINDING CAPACITY 331 ug/dL (250-450)
[2018-03-20 20:43] LABS: HEPATITIS B SURFACE AG Negative (NEGATIVE)
[2018-03-20 20:48] LABS: HEPATITIS A IGM NEGATIVE (NEGATIVE); HEPATITIS B CORE AB NEGATIVE (NEGATIVE)
[2018-03-20 21:00] LABS: HEPATITIS C ANTIBODY NEGATIVE (NEGATIVE)
[2018-03-20] MEDS: (Lantus) Insulin Glargine, Recombinant SC SCH (22:16)
[2018-03-21] MEDS: (Novolog) Insulin Aspart, Recombinant 100 u/ml 10 ml vial SC SCH ×3 (07:55→16:50)
[2018-03-21] MEDS: (Novolin R) Insulin Human Regular 100 units/ml vial SC SCH ×4 (07:55→21:43)
--- NOTE | 2018-03-21 08:39 | PN ---
DATE: 03/21/2018 SUBJECTIVE: This 57-year-old female seen early in rounds today with a persistent complaint of abdominal pain, midepigastric radiates to the back and somewhat to the right upper quadrant area with recurrent episodes of migraine headache. No reported active GI bleeding, but rectal bleeding on and off. The patient had been constipated recently. The entire chart is reviewed including but not limited to the most recent lab result with today's blood glucose level of 100 with reported low iron study. Hepatitis profile reported to be normal as well as liver function test. The official report of the abdominal and pelvic CAT scan reviewed as well as ultrasound of the abdomen. It has to be mentioned that the patient experienced severe episode of dyspepsia, midepigastric pain and nausea during my physical examination, then reported rectal bleeding. PHYSICAL EXAMINATION: GENERAL: A 57-year-old female, afebrile. VITAL SIGNS: Heart rate of 52, respiratory rate 20-22, blood pressure of 134/82. HEENT: Showed pale dry oral mucoid membrane. Nonicteric sclerae. LUNGS: Few scattered crepitation. Decreased air entry at bases. HEART: Positive S1 and S2. ABDOMEN: Soft with mild distention with hypoactive bowel sounds and severe midepigastric tenderness. No mass or organomegaly. No rebound tenderness or guarding. EXTREMITIES: Without significant edema, clubbing or cyanosis. RECTAL: Positive stool with trace of fresh and old blood and blood clot with tenderness. NEUROLOGIC: No reported new neurological deficits, sensory or motor. It has to be mentioned that the patient is still complaining of migraine headache on and off. IMPRESSION: 1. Re-exacerbation of peptic ulcer disease, to rule out gastric versus duodenal ulcer. 2. Rectal bleeding of unclear etiology. 3. Known past medical history of poorly controlled diabetes mellitus, bronchial asthma, deep venous thrombosis. 4. Known history of hyperlipidemia, hypertension and osteoporosis. 5. Status post section and appendectomy before. 6. Known history of status post hysterectomy. SUGGESTIONS: 1. Continue current management. 2. Add p.o. 3. Reglan IV. Endoscopic evaluation of the upper GI tract if the patient's symptoms persist. Further recommendation to follow. Keo Pineda MD
[2018-03-21] MEDS: Pantoprazole 40 mg EC Tab PO SCH (09:08)
[2018-03-21] MEDS: POLYETHYLENE GLYCOL 3350 17 GM/Dose PACKET PO SCH ×2 (09:08→17:20)
[2018-03-21] MEDS: Docusate-Senna 50 mg-8.6 mg Tab PO SCH (09:14)
[2018-03-21] MEDS: (Lantus) Insulin Glargine, Recombinant SC SCH ×2 (09:20→21:43)
--- NOTE | 2018-03-22 08:00 | HP ---
HISTORY OF PRESENT ILLNESS: Patient is a 66-year-old female, history of diabetes, hypertension, history of chronic abdominal pain. The patient has complained of right-sided pain and epigastric pain. The patient came to the ER, advised admission. PHYSICAL EXAMINATION: GENERAL: The patient is awake, alert, and oriented. VITAL SIGNS: Temperature 98, pulse 90. HEENT: Within normal limits. NECK: Supple. CHEST: Symmetrical. HEART: Regular. ABDOMEN: Soft. EXTREMITIES: No edema. ASSESSMENT AND PLAN: The patient suffers uncontrolled diabetes . The patient is on bedrest and supportive care. Calderon Morel MD
[2018-03-22 08:48] LABS: BASO % 0.6 % (0.0-2.0); EOS # 0.1 K/uL (0.0-0.7); EOS % 2.2 % (0.0-4.0); HEMOGLOBIN 12.2 g/dL (11.0-16.0); LYMPH # 2.6 K/uL (1.0-4.3); LYMPH % 58.5 % (20.0-40.0); MEAN CELL VOLUME 88.4 fL (81.0-99.0); MEAN CORPUSCULAR HEMOGLOBIN 28.7 pg (27.0-31.0); MEAN CORPUSCULAR HGB CONC 32.4 g/dL (33.0-37.0); MEAN PLATELET VOLUME 9.8 fL (7.2-11.7); MONO # 0.3 K/uL (0.0-0.8); MONO % 6.5 % (0.0-10.0); NEUT # 1.5 K/uL (1.8-7.0); NEUT % 32.2 % (50.0-75.0); NRBC % 0.1 % (0.0-2.0); RBC 4.25 Mil/uL (3.80-5.20); RED CELL DISTRIBUTION WIDTH 14.4 % (11.5-14.5); WHITE BLOOD COUNT 4.5 K/uL (4.8-10.8)
--- NOTE | 2018-03-22 08:52 | PN ---
DATE: 03/22/2018 LOCATION: 556, bed B. SUBJECTIVE: This is a 57-year-old female seen and examined early in rounds without significant clinical changes with persistent midepigastric pain and headache, migraine headache with nausea and persistent severe dyspepsia on and off. The entire chart is reviewed including but not limited to the most recent lab and radiology study results and today's lab results showed blood glucose level of 156, elevated. The patient has normal lipase and amylase level and a normal CEA and CA 19-9. PHYSICAL EXAMINATION: GENERAL: A 57-year-old female, awake, alert, oriented. VITAL SIGNS: Afebrile with pulse of 56, respiratory rate 20 to 22, blood pressure 132/70. HEENT: Showed pale dry oral mucoid membrane mildly, nonicteric sclerae. LUNGS: Few scattered crepitation with decreased air entry at bases. HEART: Positive S1 and S2. ABDOMEN: Soft. Bowel sounds are present with mild generalized tenderness but mainly in the midepigastric and lower sternal area. No mass or organomegaly. EXTREMITIES: Without edema, clubbing or cyanosis. NEUROLOGIC: No reported new neurological deficits, sensory or motor. IMPRESSION: 1. Re-exacerbation of peptic ulcer disease, to rule out gastric versus duodenal ulcer. 2. Migraine headache. 3. Reported rectal bleeding of unclear etiology with change of bowel movement habit. 4. Poorly-controlled diabetes mellitus. 5. Known history of deep venous thrombosis with bronchial asthma. 6. Known history of hypertension, osteoporosis, hyperlipidemia with status post section and appendectomy before. 7. Status post hysterectomy, by history. SUGGESTIONS: 1. Continue current management. 2. Increase the dose of Carafate. 3. Upper endoscopy at a.m. 4. Further recommendation to follow. Keo Pineda MD
[2018-03-22] MEDS: (Novolog) Insulin Aspart, Recombinant 100 u/ml 10 ml vial SC SCH ×3 (08:58→17:15)
[2018-03-22] MEDS: (Novolin R) Insulin Human Regular 100 units/ml vial SC SCH ×4 (08:59→21:48)
[2018-03-22 09:13] LABS: ALB/GLOB RATIO 1.7 (1.0-2.1); ALBUMIN 4.3 g/dL (3.5-5.0); ALT/SGPT 19 U/L (9-52); AST/SGOT 30 U/L (14-36); BLOOD UREA NITROGEN 11 mg/dL (7-17); CALCIUM 9.3 mg/dl (8.6-10.4); GFR NON-AFRICAN AMERICAN > 60
[2018-03-22] MEDS: Docusate-Senna 50 mg-8.6 mg Tab PO SCH (11:59)
[2018-03-22] MEDS: Pantoprazole 40 mg EC Tab PO SCH (12:00)
[2018-03-22] MEDS: POLYETHYLENE GLYCOL 3350 17 GM/Dose PACKET PO SCH ×2 (12:00→17:55)
--- NOTE | 2018-03-22 13:59 | CP.PCM.CON ---
History of Present Illness - History of Present Illness History of Present Illness: CONSULT DICTATED PERSISTENT HEMICRANIA ?? CERVICAL DISCOGENIC PATIENT OF DR MONIQUE - BEEN WORKED UP ALREADY SEEING PAIN MANAGEMENT FOR HER CERVICAL PAIN VASCULITIS WORK UP SYMPTOMATIC TREATEMENT FOR HER HEADACHE WILL DISCUSS WITH DR MONIQUE Past Patient History - Infectious Disease Hx of Infectious Diseases: None - Past Medical History & Family History Past Medical History?: Yes - Past Social History Smoking Status: Smoker Currrent Status Unknown - CARDIAC Hx Hypercholesterolemia: Yes Hx Hypertension: Yes - PULMONARY Hx Asthma: Yes - NEUROLOGICAL HX Cerebrovascular Accident: Yes (subarachnoid june 2015) Other/Comment: neuropathy - HEENT Hx HEENT Problems: No Other/Comment: 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 - RENAL Hx Chronic Kidney Disease: No - ENDOCRINE/METABOLIC Hx Diabetes Mellitus Type 2: Yes - HEMATOLOGICAL/ONCOLOGICAL Hx Blood Disorders: No (SEE COMMENT) Hx Blood Transfusions: No Other/Comment: DVT 2015 - INTEGUMENTARY Hx Dermatological Problems: No - MUSCULOSKELETAL/RHEUMATOLOGICAL Hx Falls: No Hx Osteoporosis: Yes - GASTROINTESTINAL Hx Gastritis: Yes (EPIGASTRIC PAIN) - GENITOURINARY/GYNECOLOGICAL Hx Genitourinary Disorders: No Hx Urinary Tract Infection: No Other/Comment: HYSTERECTOMY FOR BLEEDING - PSYCHIATRIC Hx Anxiety: No Hx Depression: No Hx Substance Use: No - SURGICAL HISTORY Hx Appendectomy: Yes - ANESTHESIA Hx Anesthesia: Yes Hx Anesthesia Reactions: No Hx Malignant Hyperthermia: No Meds Allergies/Adverse Reactions: Allergies Allergy/AdvReac Type Severity Reaction Status Date / Time Penicillins Allergy Intermediate RASH Verified 03/19/18 11:16 - Medications Medications: Current Medications Dextrose (Dextrose 50% Inj) 0 ml IV STAT PRN; Protocol PRN Reason: Hypoglycemia Protocol Dextrose (Glutose 15) 0 gm PO ONCE PRN; Protocol PRN Reason: Hypoglycemia Protocol Dicyclomine HCl (Bentyl) 20 mg PO BID [facility] Last Admin: 03/22/18 11:59 Dose: 20 mg Docusate Sodium (Colace) 100 mg PO BID [facility] Last Admin: 03/22/18 12:00 Dose: 100 mg Duloxetine HCl (Cymbalta) 30 mg PO QID [facility] Last Admin: 03/22/18 11:59 Dose: 30 mg Fenofibrate (Tricor) 145 mg PO QPM [facility] Last Admin: 03/21/18 17:21 Dose: 145 mg Glucagon (Glucagen Diagnostic Kit) 0 mg IM STAT PRN; Protocol PRN Reason: Hypoglycemia Protocol Heparin Sodium (Porcine) (Heparin) 5,000 units SC Q12H [facility] Last Admin: 03/22/18 09:00 Dose: 5,000 units Dextrose (Dextrose 5% In Water 1000 Ml) 1,000 mls @ 0 mls/hr IV .Q0M PRN; Protocol PRN Reason: Hypoglycemia Protocol Insulin Aspart (Novolog) 15 unit SC AC [facility] Last Admin: 03/22/18 12:07 Dose: 15 units Insulin Glargine (Lantus) 20 unit SC DAILY [facility] Last Admin: 03/21/18 09:20 Dose: Not Given Insulin Glargine (Lantus) 60 unit SC [facility] Last Admin: 03/21/18 21:43 Dose: Not Given Insulin Human Regular (Novolin R) 0 unit SC [facility]; Protocol Last Admin: 03/22/18 12:08 Dose: 2 units Ketorolac Tromethamine (Toradol) 30 mg IVP Q8H PRN PRN Reason: Pain, severe (8-10) Last Admin: 03/22/18 05:43 Dose: 30 mg Losartan Potassium (Cozaar) 50 mg PO DAILY [facility] Last Admin: 03/22/18 12:07 Dose: 50 mg Metformin HCl (Glucophage) 500 mg PO BID [facility] Last Admin: 03/22/18 12:00 Dose: 500 mg Metoclopramide HCl (Reglan) 5 mg IVP Q6H [facility] Last Admin: 03/22/18 09:00 Dose: 5 mg Oxybutynin Chloride (Ditropan Tab) 5 mg PO [facility] Last Admin: 03/21/18 21:44 Dose: 5 mg Pantoprazole Sodium (Protonix Ec Tab) 40 mg PO DAILY [facility] Last Admin: 03/22/18 12:00 Dose: 40 mg Polyethylene Glycol (Miralax) 17 gm PO BID [facility] Last Admin: 03/22/18 12:00 Dose: 17 gm Rosuvastatin Calcium (Crestor) 5 mg PO [facility] Last Admin: 03/21/18 21:41 Dose: 5 mg Senna/Docusate Sodium (Senokot S 50 Mg-8.6 Mg) 1 tab PO DAILY [facility] Last Admin: 03/22/18 11:59 Dose: 1 tab Sucralfate (Carafate Tab) 1 gm PO BID [facility] Last Admin: 03/22/18 12:00 Dose: 1 gm Results - Vital Signs Recent Vital Signs: Last Vital Signs Temp 98.1 F 03/22/18 08:07 Pulse 62 03/22/18 08:07 Resp 20 03/22/18 08:07 BP 147/81 03/22/18 12:00 Pulse Ox 98 03/22/18 08:07 - Labs Result Diagrams: 03/22/18 08:38 03/22/18 08:38 Labs: Laboratory Results - last 24 hr 03/21/18 03/21/18 03/22/18 16:21 21:12 06:17 WBC RBC Hgb Hct MCV MCH MCHC RDW Plt Count MPV Neut % (Auto) Lymph % (Auto) [place] % (Auto) Eos % (Auto) Baso % (Auto) Neut # (Auto) Lymph # (Auto) [place] # (Auto) Eos # (Auto) Baso # (Auto) Sodium Potassium Chloride Carbon Dioxide Anion Gap BUN Creatinine Est GFR ( Amer) Est GFR (Non-Af Amer) POC Glucose (mg/dL) 152 H 147 H 156 H Random Glucose Calcium Total Bilirubin AST ALT Alkaline Phosphatase Total Protein Albumin Globulin Albumin/Globulin Ratio 03/22/18 03/22/18 03/22/18 08:38 08:38 11:24 WBC 4.5 L RBC 4.25 Hgb 12.2 Hct 37.6 MCV 88.4 MCH 28.7 MCHC 32.4 L RDW 14.4 Plt Count 299 MPV 9.8 Neut % (Auto) 32.2 L Lymph % (Auto) 58.5 H [place] % (Auto) 6.5 Eos % (Auto) 2.2 Baso % (Auto) 0.6 Neut # (Auto) 1.5 L Lymph # (Auto) 2.6 [place] # (Auto) 0.3 Eos # (Auto) 0.1 Baso # (Auto) 0.0 Sodium 137 Potassium 4.3 Chloride 100 Carbon Dioxide 31 H Anion Gap 11 BUN 11 Creatinine 0.6 L Est GFR ( Amer) > 60 Est GFR (Non-Af Amer) > 60 POC Glucose (mg/dL) 221 H Random Glucose 159 H D Calcium 9.3 Total Bilirubin 0.3 AST 30 ALT 19 Alkaline Phosphatase 55 Total Protein 6.9 Albumin 4.3 Globulin 2.6 Albumin/Globulin Ratio 1.7
[2018-03-22] MEDS: (Lantus) Insulin Glargine, Recombinant SC SCH (21:51)
[2018-03-23] MEDS: (Novolin R) Insulin Human Regular 100 units/ml vial SC SCH ×2 (07:59→12:28)
[2018-03-23] MEDS: (Novolog) Insulin Aspart, Recombinant 100 u/ml 10 ml vial SC SCH ×2 (08:00→13:00)
--- NOTE | 2018-03-23 08:44 | CON ---
DATE: 03/22/2018 LOCATION: Room 556, Bed B. CHIEF COMPLAINT: The patient was admitted with history of abdominal pain, nausea, vomiting with headache. From neurological point of view, I was called in to take care of her headache. HISTORY OF PRESENT ILLNESS: Ms. Leonardo Ling is a 57-year-old right-handed [place] female presenting with headache for more than two years. The headache is located over her occipital region, radiating to her frontal region. The headache is mostly on the right side. The whole right side of the body up to her knee is painful. The pain scale is 8/10. This pain is not associating with numbness or tingling sensation. Sometimes, she had visual disturbances on her right eye. The patient was seen by Dr. Kulkarni as outpatient for her headache, been worked up in the past and taking medication as he suggested for her headache. She is also seeing pain management doctor, Dr. Wade, for her neck disk problem and she has been getting injections for right and left side of her neck. She feels better with injections. However, the headache is not getting better. PAST MEDICAL HISTORY: Asthma, diabetes, deep vein thrombosis, gastritis, ulcer, hypertension, hypercholesterolemia, osteoporosis. PERSONAL HISTORY: Denies smoking or alcohol use. ALLERGIES: ALLERGIC TO PENICILLIN. REVIEW OF SYSTEMS: 12-point system being reviewed from Neuro, headache. MEDICATIONS: Bentyl, Carafate, Colace, Cozaar, Crestor, Cymbalta, Ditropan, glucagon, Glucophage, insulin, MiraLax, Protonix and Toradol. PHYSICAL EXAMINATION: VITAL SIGNS: Blood pressure 144/78, mean arterial pressure of 100, respiratory rate 18, temperature 98.1, pulse rate 62 regular. NECK: Supple. No carotid bruits. HEART: Sounds regular. Fair air entry. EXTREMITIES: No edema in legs. Examination of the cervical spine, tenderness on either side of the cervical paraspinal muscle groups with tightness. Range of motion is limited on her right shoulder due to the pain and her right knee. NEUROLOGICAL EXAMINATION: Mental status examination: She is awake, alert and oriented to person, place and time. Speech is clear. Naming, repetition, fluency, comprehension all within normal limits. Cranial nerve examination; visual field intact. Pupils reactive to light. Extraocular movement normal. No nystagmus. No facial sensory deficit. No facial asymmetry. Hearing is normal. Tongue is midline. Good gag. Motor examination; on outstretched hand with eyes closed, no drift noted. Power is symmetric on either side. Deep tendon reflexes at the biceps, brachialis, and triceps are 1+, both knees are 1+, left ankle 1+ right ankle absent. Plantars are withdrawal response. Sensory examination is grossly intact. No dermatomal sensory loss which is inconsistent as well. Coordination: Finger-nose test is intact. Gait is normal. She is ambulating without any assistance. Examination of the temporal artery, no jaw tenderness. CONCLUSION: As my neurological examination and on reviewing her history, she is presenting with persistent hemicrania. The current examination shows pain limited exam on her right side which is probably related to her hemicrania itself. However, other possible causes of vasculitis should be ruled out. The patient presenting is with cervical disk disease, being worked up in the past. This is probably related to cervical disk disease as well. LABORATORY DATA: Workup, WBC 4.5, hemoglobin 12.2, hematocrit 37.6, platelet 299. Sodium 137, potassium 4.3, chloride 100, bicarbonate 31, BUN 11, creatinine 0.6, GFR more than 60, glucose 221. RECOMMENDATIONS: 1. I would like to discuss about her problem with Dr. Kulkarni (neurologist on this case as outpatient). 2. Her headache can be treated symptomatically as she has been getting medication. The patient also recommended to have blood workup for vasculitis. The patient's condition will be discussed with her daughter as well. The patient will be followed closely while she is in the hospital. Vazquez Bonilla MD
[2018-03-23] MEDS ORDERED: Lactated Ringer's 500 ML IV ONE ×2 (10:49)
[2018-03-23] MEDS ORDERED: Propofol 10 mg/ml Inj (20 ML) ONE (10:59)
[2018-03-23] MEDS: (Lantus) Insulin Glargine, Recombinant SC SCH (11:04)
[2018-03-23] MEDS: POLYETHYLENE GLYCOL 3350 17 GM/Dose PACKET PO SCH (11:05)
--- NOTE | 2018-03-23 11:07 | CP.PCM.PN ---
Subjective - Date & Time of Evaluation Date of Evaluation: 03/23/18 Time of Evaluation: 12:07 - Subjective Subjective: PGY2 Medicine Note for Dr. Morel Patient seen and examined this morning at bedside. Patient was seen after EGD this morning. She is currently feeling well but is experiencing a headache. SHe was given tylenol. She is without any additional complaints, stating her abdominal pain has improved. Patient is scheduled to be discharged later this afternoon. Objective - Vital Signs/Intake and Output Vital Signs (last 24 hours): Temp Pulse Resp BP Pulse Ox 98.2 F 66 18 149/69 100 03/23/18 08:00 03/23/18 11:00 03/23/18 11:00 03/23/18 11:00 03/23/18 11:00 Intake and Output: 03/23/18 03/23/18 06:59 18:59 Intake Total 400 Balance 400 - Medications Medications: Current Medications Carbamazepine (Tegretol-Xr) 400 mg PO Q12 [facility] Last Admin: 03/23/18 11:05 Dose: Not Given Dextrose (Dextrose 50% Inj) 0 ml IV STAT PRN; Protocol PRN Reason: Hypoglycemia Protocol Dextrose (Glutose 15) 0 gm PO ONCE PRN; Protocol PRN Reason: Hypoglycemia Protocol Dicyclomine HCl (Bentyl) 20 mg PO BID [facility] Last Admin: 03/23/18 11:04 Dose: Not Given Docusate Sodium (Colace) 100 mg PO BID [facility] Last Admin: 03/23/18 11:04 Dose: Not Given Duloxetine HCl (Cymbalta) 30 mg PO QID [facility] Last Admin: 03/23/18 11:04 Dose: Not Given Fenofibrate (Tricor) 145 mg PO QPM [facility] Last Admin: 03/22/18 17:55 Dose: 145 mg Glucagon (Glucagen Diagnostic Kit) 0 mg IM STAT PRN; Protocol PRN Reason: Hypoglycemia Protocol Heparin Sodium (Porcine) (Heparin) 5,000 units SC Q12H [facility] Last Admin: 03/23/18 08:47 Dose: Not Given Insulin Aspart (Novolog) 15 unit SC AC [facility] Last Admin: 03/23/18 08:00 Dose: Not Given Insulin Glargine (Lantus) 20 unit SC DAILY [facility] Last Admin: 03/23/18 11:04 Dose: Not Given Insulin Glargine (Lantus) 60 unit SC HS [facility] Last Admin: 03/22/18 21:51 Dose: Not Given Insulin Human Regular (Novolin R) 0 unit SC [facility]; Protocol Last Admin: 03/23/18 07:59 Dose: Not Given Losartan Potassium (Cozaar) 50 mg PO DAILY [facility] Last Admin: 03/22/18 12:07 Dose: 50 mg Metformin HCl (Glucophage) 500 mg PO BID [facility] Last Admin: 03/23/18 11:04 Dose: Not Given Metoclopramide HCl (Reglan) 5 mg IVP Q6H [facility] Last Admin: 03/23/18 08:47 Dose: Not Given Oxybutynin Chloride (Ditropan Tab) 5 mg PO [facility] Last Admin: 03/22/18 21:50 Dose: 5 mg Pantoprazole Sodium (Protonix Ec Tab) 40 mg PO DAILY [facility] Last Admin: 03/22/18 12:00 Dose: 40 mg Polyethylene Glycol (Miralax) 17 gm PO BID [facility] Last Admin: 03/23/18 11:05 Dose: Not Given Rosuvastatin Calcium (Crestor) 5 mg PO [facility] Last Admin: 03/22/18 21:50 Dose: 5 mg Senna/Docusate Sodium (Senokot S 50 Mg-8.6 Mg) 1 tab PO DAILY [facility] Last Admin: 03/22/18 11:59 Dose: 1 tab Sucralfate (Carafate Tab) 1 gm PO BID [facility] Last Admin: 03/23/18 11:04 Dose: Not Given - Labs Labs: 03/22/18 08:38 03/22/18 08:38 - Additional Findings Additional findings: - Constitutional Appears: Non-toxic, No Acute Distress - Head Exam Head Exam: ATRAUMATIC, NORMOCEPHALIC - Eye Exam Eye Exam: Normal appearance - ENT Exam ENT Exam: Mucous Membranes Moist - Neck Exam Neck Exam: absent: Lymphadenopathy - Respiratory Exam Respiratory Exam: Clear to Ausculation Bilateral, NORMAL BREATHING PATTERN. absent: Accessory Muscle Use, Rales, Rhonchi, Wheezes, Respiratory Distress - Cardiovascular Exam Cardiovascular Exam: REGULAR RHYTHM, +S1 - GI/Abdominal Exam GI & Abdominal Exam: Soft, Tenderness (RUQ>epigastric>RLQ). absent: Distended, Firm, Guarding, Rigid - Extremities Exam Extremities Exam: absent: Calf Tenderness, Pedal Edema - Neurological Exam Neurological Exam: Alert, Awake, Oriented x3 - Psychiatric Exam Psychiatric exam: Normal Affect, Normal Mood - Skin Skin Exam: Dry, Warm Assessment and Plan - Assessment and Plan (Free Text) Plan: Abdominal Pain likely secondary to poorly controlled diabetes - Diabetic Intestinal enteropathy Dr. Morris consulted, help appreciated Abd u/s: hepatomegaly, echogenic liver may be seen in setting of hepatic parenchymal disease or fatty infiltration CT abd/ pelvis: No evidence of appendicitis. Hepatomegaly and moderate hepatic steatosis. No evidence of cholecystitis, pancreatitis or bowel obstruction. continue home medications: Sucralfate 1gm po BID, Reglan 5mg po BID, Bentyl 20mg po BID Linzess and Dexilant NF Toradol 30mg ivp q6h prn Protonix 40mg po daily low consistent, heart healthy, bland diet Uncontrolled DMII hypoglycemia protocol accuchecks ACHS adjust insulin based on po intake many home diabetic medications NF HgA1c 9.0 continue home meds: * Novolog 15 u sc ac * Lantus 40 u sc daily (changed to 20 units SC due to decreased appetite) * Lantus 60 u SC HS - may need to hold if patient continues to not eat appropriately * Metformin 500mg po BID * ISS ACHS HTN Losartan 50mg po daily TSH 1.29, free T4 0.89 HLD simvastatin NF --> Crestor 5mg po HS Fenofibrate 145 po HS Lipid Panel: LDL 110, HDL 47, Triglycerides 198 Urge Incontinence continue home medication: Ditropan 5mg po HS Depression Cymbalta 30mg po QID (also for diabetic neuropathy) --> per patient's pharmacy, supposed to be once daily Prophylaxis Protonix 40mg po daily SCDs DISPO: Patient was discharged home on 03/23/18 with the following instructions. These instructions were discussed at length at beside by Dr. Alejandre. Patient is to be discharged home per Dr. Morel Patient is to follow up with her primary care physician, Dr. Morel, within 1 week from discharge. Please call and schedule an appointment. Patient is to follow up with Dr. Morris (Gastroenterology) in 5 weeks from discharge. Please call and schedule an appointment. Patient is to follow up with her Neurologist for continued management of her headaches. Patient is to take her medications as directed. Continue all of your home medications as previously prescribed. Patient was given prescriptions for: - Metoclopramide (Reglan) 5mg, take one tab by mouth three times per day - disp 90 tabs - Pantoprazole (Protonix) 40mg, take one tab by mouth once per day - disp 30 tabs - Sucralfate (Carafate) 1gm, take one tab by mouth four times per day for the next 8 weeks - disp 224 tabs If patient experiences any new or concerning symptoms, please contact Dr. Morel's office or go to the nearest emergency facility. Case discussed with Dr. Adriel Fernández Hill PGY2
--- NOTE | 2018-03-23 11:20 | PN ---
DATE: 03/23/2018 TIME OF EVALUATION: 7:10 a.m. 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 PHYSICAL EXAMINATION: VITAL SIGNS: Blood pressure 119/68, mean arterial pressure of 85, respiratory rate 18, temperature afebrile with a pulse rate of 59. The patient is comfortably lying down. The patient got her medication last night and slept good. Her pain is still the same which is unchanged. No nausea. No vomiting. Rest of examination is unchanged in comparison to previous examination. The patient's condition is being discussed with Dr. Kulkarni. She has been followed by him as outpatient, been worked up extensively, has been tried with multiple medications which is unsuccessful. At present, the patient has been taking Tegretol 400 mg twice a day for pain control on her face (trigeminal neuralgia). The patient also advised to continue pain management from Dr. Wade. From neurological point of view, since she has been worked up completely as outpatient, no further workup is needed. Her examination which is unchanged to compare with outpatient visit from Dr. Kulkarni. Continue the present management. The patient to resume her Tegretol dose as she has been getting from outside. Vazquez Bonilla MD
[2018-03-23 11:46] VITALS: RESP 14; TEMP 98
[2018-03-23 11:49] VITALS: BP 139/72; PULSE 65; O2SAT 100
[2018-03-23] MEDS: Pantoprazole 40 mg EC Tab PO SCH (13:58)
[2018-03-23] MEDS: Docusate-Senna 50 mg-8.6 mg Tab PO SCH (13:58)
[2018-03-23] MEDS ORDERED: Belladonna-Phenobarbital PO SCH (14:00)
== END 2018-03-23 16:21 | disposition home or self-care (01) | DRG 74 ==
LOC: C.ER 11:11 → C.9E 16:40 → C.5S 17:08 → OBSVTOIN 03-21 08:02
PROVIDERS: ADMIT Internal Medicine Pulmonary Disease; ATTEND Internal Medicine Pulmonary Disease
PROC: 0DB68ZX Excision of Stomach, Via Natural or Artificial Opening Endoscopic, Diagnostic (ICD-10-PCS; principal; 2018-03-23 11:00)
DX: E11.43 Type 2 diabetes mellitus with diabetic autonomic (poly)neuropathy (principal); K62.5 Hemorrhage of anus and rectum; K76.0 Fatty (change of) liver, not elsewhere classified; K44.9 Diaphragmatic hernia without obstruction or gangrene; K27.9 Peptic ulcer, site unspecified, unspecified as acute or chronic, without hemorrhage or perforation; K31.84 Gastroparesis; G43.909 Migraine, unspecified, not intractable, without status migrainosus; K76.89 Other specified diseases of liver; F32.9 Major depressive disorder, single episode, unspecified; D70.9 Neutropenia, unspecified; E66.9 Obesity, unspecified; E78.5 Hyperlipidemia, unspecified; E11.65 Type 2 diabetes mellitus with hyperglycemia; I10 Essential (primary) hypertension; N39.41 Urge incontinence; G50.0 Trigeminal neuralgia; Z79.4 Long term (current) use of insulin; Z88.0 Allergy status to penicillin; K29.50 Unspecified chronic gastritis without bleeding